=== PATIENT | female | born 1985 | race Caucasian/White ===

== ENCOUNTER 2018-06-25 14:43 | Inpatient (IN) ==
[2018-06-25] MEDS ORDERED: NS 1,000 ML IV ONE (18:56)
[2018-06-25] MEDS ORDERED: ZOFRAN IV ONE (18:57)
--- NOTE | 2018-06-25 19:46 | PROVIDER DOCUMENTATION ---
This chart was entered by Janett Peterson Scribe, acting as scribe for Agustín Garay MD. HPI-General Adult - General Chief Complaint: Nausea/Vomiting Stated Complaint: NAUSEA/VOMITING-7 WKS PREG Time Seen by Provider: 06/25/18 18:56 Source: patient Allergies/Adverse Reactions: Patient Allergies Allergy/AdvReac Type Severity Reaction Status Date / Time metaxalone [From Skelaxin] AdvReac NAUSEA/VOMI Verified 06/25/18 14:57 TING metoclopramide [From Reglan] AdvReac NAUSEA/VOMI Verified 06/25/18 14:57 TING prednisone AdvReac NAUSEA/VOMI Verified 06/25/18 14:57 TING Home Medications: Home Medication List Medication Instructions Recorded Confirmed Last Taken Type Levothyroxine [Synthroid] 75 microgm PO DAILY 12/28/17 01/28/18 01/28/18 05:00 History Lorazepam [Ativan] 0.5 mg PO PRN PRN 01/27/18 01/28/18 01/28/18 05:00 History - History of Present Illness -Gen Adult Nature of Presenting Problems: Pt is 32/F presenting to ED w/ n/v since yesterday. Pt is 7 1/2 weeks . Has hx of hyperemesis and has had PICC line in past and she sts that this feels the same as she did then and cannot keep anything down at all. Location of Pain/Injury: reports: abdomen Pain Radiation: reports: no radiation Quality of Pain: reports: other (tender/nauseated) Severity: reports: moderate Onset/Duration: reports: last night Timing: reports: still present Context/Activities at Onset: reports: none Modifying Factors: improves with: nothing Associated Symptoms: reports: nausea, vomiting, weakness. denies: anxiety, fever/chills Similar Symptoms Previously?: Yes Recently seen or treated by another doctor?: No Review of Systems - Adult - REVIEW OF SYSTEMS - ADULT Constitutional: reports: no symptoms reported. denies: chills, fever Eyes: reports: no symptoms reported Ears, Nose, Mouth & Throat: reports: no symptoms reported Cardiovascular: reports: no symptoms reported Respiratory: denies: cough, shortness of breath, wheezing Gastrointestinal: reports: abdominal pain, nausea, vomiting. denies: diarrhea Musculoskeletal: reports: no symptoms reported Integumentary: reports: no symptoms reported Neurological: reports: no symptoms reported Psychiatric: reports: no symptoms reported Endocrine: reports: no symptoms reported Hematologic/Lymphatic: reports: no symptoms reported Allergic/Immunologic: reports: no symptoms reported All Other Systems: Reviewed and Negative Past History - Adult - PAST MEDICAL HISTORY-ADULT Review of Records: reports: Old Records Reviewed, Nursing Assessment Review, Medications Reviewed, Social history reviewed & non-contributory. Major Childhood Illnesses: reports: denies history Cardiovascular: reports: denies history Respiratory: reports: denies history Gastrointestinal: reports: denies history Obstetrical/Gynecological: reports: denies history Genitourinary: reports: denies history Musculoskeletal: reports: denies history Neurological: reports: denies history Psychiatric: reports: denies history Endocrine/Immune: reports: denies history Other Conditions: reports: denies history - PRIOR SURGERIES/PROCEDURES Surgical/Procedure History: reports: cholecystectomy, - IMMUNIZATION STATUS Childhood Immunizations: See Nurse Assessment Flu Vaccine: See Nurse Assessment - FAMILY HISTORY Family History: reviewed, not pertinent - SOCIAL HISTORY Smoking: denies, non-smoker Substance Use: none/never Alcohol Use Frequency: never Living Situation: family Physical Exam-General - PHYSICAL EXAM-ADULT Initial Vital Signs Reviewed: Yes - CONSTITUTIONAL General Appearance: appears well, alert, no apparent distress - EYES Eyes: PERRL/EOMI, pink conjunctivae - HEAD, EARS, NOSE, MOUTH & THROAT HENMT: normocephalic/atraumatic, moist mucous membranes, normal ENT inspection, TMs normal, pharynx normal - NECK Neck: non-tender, full range of motion, supple, normal inspection - RESPIRATORY Respiratory: lungs clear - CARDIOVASCULAR Cardiovascular: normal peripheral pulses, regular rate, rhythm, no edema - GASTROINTESTINAL (ABDOMEN) Abdominal Exam: soft, tenderness - LYMPHATIC Lymphatic: no adenopathy - MUSCULOSKELETAL Back Exam: normal inspection, no CVA tenderness, no vertebral tenderness Extremity: normal range of motion, non-tender, normal gait, normal inspection - SKIN Integumentary: normal color, warm/dry - NEUROLOGIC Neurologic: grossly normal - PSYCHIATRIC Psych/Mental Status: normal mood/affect, normal thought content, normal thought process, oriented x 3 Progress - PLAN OF CARE/RESULTS Progress/Plan/Lab Results: Vital Signs - 8 hr 06/25/18 14:53 Temperature 97.8 F Pulse Rate 82 Respiratory Rate 18 Blood Pressure 106/65 O2 Sat by Pulse Oximetry 100 Orders Category Date Time Status BMP [BASIC METABOLIC PANEL] [CHEM] Stat Lab 06/25/18 18:56 Ordered 0.9% Sodium Chloride Inj [Ns] 1,000 ml Med 06/25/18 18:56 Active IV 999 mls/hr Ondansetron [Zofran] Med 06/25/18 18:57 Discontinued 4 mg IV NOW ONE Result Diagrams: 06/25/18 22:24 - CONSULTS/PCP/HOSPITALIST Notification #1 *Consult/PCP/Hospitalist*: Dr. Palmer, INDUSTRIAL REGISTERED NURSE lifestyle consultant Time Discussed: 00:10 Reason/Comments: give LR at 125cc/hr Consult Disposition: Admit Departure - Departure Date of Disposition Decision: 06/26/18 Time of Disposition Decision: 00:03 DIAGNOSIS: Hyperemesis gravidarum Disposition: ADMITTED INPATIENT 09 Certified Medical Emergency: Emergent Condition: Stable Referrals and Follow-Ups: Kym Aguilera [Primary Care Provider] - - Critical Care Note This patient required my direct & personal management of CC.: No Attestation - Physician/ HELADIO Attestation Patient care was provided by Advanced Practice Provider:: No The physician spent face to face time with patient:: Yes Advanced Practice Provider documentation review:: Supervising physician onsite and consulted in the evaluation and care of this patient. The physician did have a face to face encounter with the patient. This chart was documented by the indicated scribe, (Janett Peterson, Monica) and accurately reflects the services I performed and decisions made by me, Agustín Garay MD, as attested by the provider's signature.
[2018-06-25] MEDS ORDERED: ZOFRAN IM ONE (20:49)
[2018-06-25] MEDS ORDERED: NS 1,000 ML ONE (22:17)
[2018-06-25 23:03] LABS: AGAP 16; BUN 10 mg/dL (8-22); CALCIUM 9.1 mg/dL (8.8-10.2); CHLORIDE 100 mmol/L (98-107); COSMO 268; CREATININE 0.4 mg/dL (0.5-0.9); ESTIMATED GFR > 60; GLUCOSE 147 mg/dL (70-104); POTASSIUM 3.9 mmol/L (3.5-5.1); SODIUM 133 mmol/L (136-145); TCO2 18 mmol/L (25-35)
[2018-06-25] MEDS ORDERED: ZOFRAN ONE (23:10)
[2018-06-26] MEDS ORDERED: SODIUM CHLORIDE 0.9% INJ ONE ×2 (00:09→15:36)
[2018-06-26] MEDS ORDERED: LR 1,000 ML IV ONE (00:11)
[2018-06-26] MEDS: PHENERGAN IV PRN ×3 (00:11→13:03)
[2018-06-26] MEDS ORDERED: SODIUM CHLORIDE 0.9% INJ SCH (00:30)
[2018-06-26] MEDS: LR 1,000 ML IV SCH ×3 (01:57→17:59)
[2018-06-26] MEDS: AMBIEN PO PRN ×2 (02:07→22:26)
[2018-06-26] MEDS: PYRIDOXINE PO PRN ×2 (02:09→12:13)
[2018-06-26] MEDS: ZOFRAN IV PRN ×3 (04:12→17:53)
[2018-06-26 07:44] LABS: AGAP 10; BUN 7 mg/dL (8-22); CALCIUM 8.3 mg/dL (8.8-10.2); CHLORIDE 103 mmol/L (98-107); COSMO 269; CREATININE 0.4 mg/dL (0.5-0.9); ESTIMATED GFR > 60; GLUCOSE 124 mg/dL (70-104); POTASSIUM 3.6 mmol/L (3.5-5.1); SODIUM 135 mmol/L (136-145); TCO2 23 mmol/L (25-35)
[2018-06-26 07:47] LABS: BASO# 0.01 X1000 (0.0-0.2); BASO% 0.1 % (0.0-0.8); HEMATOCRIT 37.7 % (37.0-47.0); HEMOGLOBIN 13.3 g/dL (12.0-16.0); IMM GRAN# 0.06 X1000 (0.0-0.04); IMM GRAN% 0.3 % (0.0-0.5); LYMPH# 1.48 X1000 (1.2-3.4); LYMPH% 8.3 % (20.5-51.1); MCH 31.6 PG (27-31); MCHC 35.3 g/dL (33-37); MCV 89.5 FL (81-99); MONO# 1.03 X1000 (0.11-0.59); MONO% 5.8 % (1.7-9.3); MPV 9.6 FL (7.4-10.4); NEUT# 15.22 X1000 (1.4-6.5); NEUT% 85.5 % (42.2-75.2); PLT 364 X1000 (130-400); RBC 4.21 XMIL (4.2-5.4); RDW 12.8 % (11.5-14.5)
--- NOTE | 2018-06-26 09:15 | HISTORY AND PHYSICAL ---
HISTORY OF PRESENT ILLNESS: The patient is a 32-year-old G4, P 2-0-1-2, who presented to the emergency room last night with complaints of intractable nausea and vomiting. The patient reports that she has been nauseated and vomiting for the last week. She has a history of hyperemesis gravidarum with a previous and reports that she was in the hospital a lot during that time. The patient reports that she also has a history of hypothyroidism and she is currently taking medications for that. The patient reports that she thinks that she is almost 8 weeks . She has not received any care as yet because she just found out she was . OB HISTORY: Significant for 4 pregnancies, 1 miscarriage and 2 live viable children. PAST MEDICAL HISTORY: Significant for hypothyroidism. MEDICATIONS: The patient is taking levothyroxine 75 mcg. ALLERGIES: 1. Skelaxin. 2. Reglan. 3. Prednisone. REVIEW OF SYSTEMS: Nausea and vomiting. All others negative. FAMILY HISTORY: None pertinent. SOCIAL HISTORY: The patient does not smoke. Denies substance use. Lives with her fiancee and her children as well as his children. PHYSICAL EXAMINATION: VITAL SIGNS: Temperature 98.3 degrees, pulse is 85, respiratory rate 18, blood pressure is 102/657. GENERAL: The patient is alert, awake, oriented x3, in mild distress with vomiting. HEENT: The patient is normocephalic, atraumatic. CARDIOVASCULAR: S1, S2 normal. LUNGS: Clear. ABDOMEN: Positive bowel sounds and nontender to palpation. No organomegaly appreciated. EXTREMITIES: No edema. LABORATORY DATA: Hemoglobin is 13.3, hematocrit 37.7, platelets 364,000, white count 17.8. Chemistry: Sodium is 135, potassium is 3.6, chloride is 103, carbon dioxide is 23, BUN 7, creatinine 0.4, and glucose 124. ASSESSMENT AND PLAN: 1. Early , approximately 8 weeks. 2. Hyperemesis gravidarum. The patient admitted to the hospital for IV hydration and antiemetic medications. We will get a medicine consult. The patient reports she had the same problem last and had to wind up having a PICC line. We will get internal medicine physician to co-manage. cc: Jason Beltrán MD
[2018-06-26] MEDS ORDERED: PHENERGAN IV PRN (15:36)
[2018-06-26] MEDS ORDERED: PHENERGAN IV ONE (15:36)
[2018-06-26] MEDS ORDERED: SODIUM CHLORIDE 0.9% INJ PRN (15:36)
[2018-06-26] MEDS ORDERED: BENADRYL IV PRN (15:38)
--- NOTE | 2018-06-26 16:24 | Diag Imaging Result Doc PS360 ---
US ABDOMEN-COMPLETE - 06/26/2018 INDICATION: abdominal pain TECHNIQUE: Aguilera scale, color Doppler, and duplex evaluation of the abdomen was performed. COMPARISON: None FINDINGS: The liver appears normal in size and echotexture. No focal masses are appreciated. The IVC and aorta appear normal. The pancreas is unremarkable. The gallbladder is surgically absent. The common bile duct measures 5 mm. The portal vein is patent with hepatopetal flow. Spleen is unremarkable. The kidneys appear normal bilaterally. There is no hydronephrosis. IMPRESSION: Status post cholecystectomy. Otherwise normal abdominal ultrasound. Electronically signed by Linsey Bahena 06/26/2018 4:22 PM
[2018-06-26] MEDS ORDERED: COMPAZINE IV PRN ×2 (18:00→18:48)
[2018-06-26] MEDS: PROTONIX IV SCH (18:20)
[2018-06-26 18:58] LABS: AGAP 9; ALKALINE PHOSPHATASE 38 U/L (32-104); BUN 6 mg/dL (8-22); CALCIUM 8.5 mg/dL (8.8-10.2); CHLORIDE 102 mmol/L (98-107); COSMO 270; CREATININE 0.4 mg/dL (0.5-0.9); ESTIMATED GFR > 60; GLUCOSE 105 mg/dL (70-104); GOT 17 U/L (10-30); GPT 24 U/L (10-36); POTASSIUM 3.5 mmol/L (3.5-5.1); SODIUM 136 mmol/L (136-145); TCO2 25 mmol/L (25-35); TOTAL PROTEIN 6.6 g/dL (6.3-8.3)
--- NOTE | 2018-06-26 19:23 | CONSULTATION ---
DATE OF CONSULTATION: 06/26/2018 SUBJECTIVE: The patient is 8 weeks . She was admitted by MANAGER INTRANET, 32 years old with intractable nausea, vomiting. She has a history of hyperemesis gravidarum. We were consulted for medical management. Also hypothyroid. Her 1st she had to have a PICC line and IV antibiotics. That was a child of 8 years old now. PAST MEDICAL HISTORY: Hypothyroidism. PAST SURGICAL HISTORY: She has had a cholecystectomy, wisdom teeth removed. ALLERGIES: To Skelaxin, Reglan, and prednisone. The Reglan causes kind of antsiness. It is not per se I do not think. REVIEW OF SYSTEMS: Negative. FAMILY HISTORY: No diabetes. There is a family history of early colon cancer. SOCIAL HISTORY: She does not smoke. Lives with her fiance. PHYSICAL EXAMINATION: Vital signs: Blood pressure is 111/62, heart rate of 110, respiratory rate of 17, and temperature 98.4 degrees. General: She is a well-developed female in no acute distress. Head Exam: Normocephalic, atraumatic. Eye exam: Pupils are equal, round, reactive to light. Extraocular movements were intact. Ears, nose, and throat exam: She had moist mucous membranes. Neck Exam: Supple. Cardiovascular Exam: Regular rate and rhythm. Pulmonary: Bilateral breath sounds clear to auscultation. Gastrointestinal: Soft, nontender, nondistended. Bowel sounds are positive. LABORATORY DATA: White count 17, creatinine 0.4. I am still waiting on a urine sample. Her urine test was negative, but last night was positive. PROBLEM LIST: This is an 8-week patient I guess based maybe on dates. I do not have any data here. The family is very insistent on getting an ultrasound, which has been ordered and that the only problem here is hyperemesis gravidarum, and there is no other possible diagnoses and explained that may be a differential, but we would certainly focus on treating the hyperemesis issues. Intractable nausea and vomiting: She is on IV fluids. She is very insistent on Compazine because she felt that was the only thing that worked during her last . At this point I think versus promethazine, which has been ordered, and I escalated the dose, I think those are fairly interchangeable, but I defer to OUTDOOR EMERGENCY CARE TECHNICIAN as far as that is concerned. I have added Benadryl. She is already on Zofran. We may have to consider reinstituting Reglan just because it may be a benefit and follow. I have gone ahead and pursued an ultrasound of her abdomen, which was negative. I would like a urine sample because I think we need to make sure she does not have a urinary tract infection or just basic other things, but there is definitely going to be some interference issue between patient and family about goals of care as far as what is expected and what should be instituted even though it is not clear that there is medical background from their perspective besides personal medical background related to the diagnoses that have been but we will follow with you and continue to monitor closely. I appreciate consult. cc: MD Jason Kaye MD
[2018-06-26] MEDS: COMPAZINE IV PRN (19:35)
[2018-06-26 23:09] LABS: BILIRUBIN URINE NEGATIVE (NEGATIVE); BLOOD URINE NEGATIVE (NEGATIVE); CLARITY CLEAR (CLEAR); COLOR YELLOW; GLUCOSE URINE NEGATIVE (NEGATIVE); KETONE URINE NEGATIVE (NEGATIVE); LEUKOCYTES URINE NEGATIVE (NEGATIVE); NITRITE URINE NEGATIVE (NEGATIVE); PROTEIN URINE NEGATIVE (NEGATIVE); SP GRAVITY URINE 1.005; UROBILINOGEN URINE NORMAL
[2018-06-26 23:11] LABS: URINE BACTERIA 1+ /HFP; URINE EPITHELIAL CELLS <10 /HPF (<10); URINE RBC <10 /HPF (<10); URINE SOURCE CLEAN CATCH; URINE WBC <10 /HPF (<10)
[2018-06-27] MEDS: LR 1,000 ML IV SCH ×3 (02:00→22:34)
[2018-06-27] MEDS: COMPAZINE IV PRN ×3 (02:12→19:32)
[2018-06-27] MEDS: PROTONIX IV SCH ×2 (05:55→18:51)
[2018-06-27] MEDS ORDERED: SODIUM CHLORIDE 0.9% INJ SCH (06:30)
[2018-06-27 07:50] LABS: BASO# 0.02 X1000 (0.0-0.2); BASO% 0.2 % (0.0-0.8); EOS# 0.04 X1000 (0.0-0.7); EOS% 0.3 % (0.0-10.0); HEMATOCRIT 35.9 % (37.0-47.0); HEMOGLOBIN 12.1 g/dL (12.0-16.0); IMM GRAN# 0.04 X1000 (0.0-0.04); IMM GRAN% 0.3 % (0.0-0.5); LYMPH# 3.76 X1000 (1.2-3.4); LYMPH% 31.3 % (20.5-51.1); MCHC 33.7 g/dL (33-37); MCV 92.1 FL (81-99); MONO# 0.88 X1000 (0.11-0.59); MONO% 7.3 % (1.7-9.3); MPV 9.8 FL (7.4-10.4); NEUT# 7.27 X1000 (1.4-6.5); NEUT% 60.6 % (42.2-75.2); PLT 338 X1000 (130-400); RDW 13.2 % (11.5-14.5); WBC 12.01 X1000 (4.8-10.8)
--- NOTE | 2018-06-27 09:17 | Diag Imaging Result Doc PS360 ---
EXAM: US OBS COMPLETE < 14 WKS 06/27/2018 HISTORY: EARLY TECHNIQUE: Transabdominal and endovaginal scan COMMENT: There is an intrauterine gestational sac with yolk sac and pole and the fundal endometrium. No abnormal fluid collections are present. The left ovary is unremarkable, the right is not well demonstrated. There is a heart rate of 133 bpm and a crown-rump length consistent with a gestational age of six weeks six days which is in agreement with the clinical assessment based on LMP. The DEEPTHI is 02/14/2019. IMPRESSION: Viable intrauterine gestation at six weeks six days by dates and ultrasound. Electronically signed by Ayaz Ponce 06/27/2018 9:14 AM
[2018-06-27] MEDS ORDERED: SYNTHROID PO SCH (17:00)
[2018-06-27] MEDS ORDERED: NS 500 ML IV ONE (17:19)
--- NOTE | 2018-06-27 17:57 | PROGRESS NOTE ---
DATE: 06/27/2018 SUBJECTIVE: Patient has no focal complaints. She is better. She is eating, not throwing up anymore. She just seems much improved per her but in any case her objective data blood pressure is a little bit on the low side, 82/52, give her a bolus here to try to get her blood pressure up. OBJECTIVE: As described.Cardiovascular: Regular rate and rhythm. Pulmonary: Bilateral breath sounds clear to auscultation. GI: Soft, nontender, nondistended. Bowel sounds are positive. LAB: Her white count is down to 12, hemoglobin and hematocrit is 12 and 35. Rest of her labs look okay. T bilirubin is up a little bit but TSH is normal. Her serum is 31,562 which is consistent with about 8 weeks according to these well the lower limit but her ultrasound looks like it is closer to 6 weeks. In any case. PROBLEMS: Hyperemesis gravidarum. She is doing better. She is safe for discharge from my standpoint at the request of [employer] PAVING MACHINE OPERATOR if they feel comfortable giving her p.r.n. Compazine. She seems better to me. The only issue a little bit of contention with is just her blood pressure is low which she is asymptomatic but I think it may be more prudent to watch her 1 more day just to make sure her blood pressure stabilizes. DISPOSITION: Pending her clinical status. We will follow along with you. cc: MD Jason Kaye MD
--- NOTE | 2018-06-27 18:04 | OB/GYN PROGRESS NOTE ---
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 Patient Problems: Current Active Problems Problem Status Onset Hyperemesis gravidarum Acute POT[employer] SE[employer] CUTTER Progress Note: Vital Signs - 24 hr 06/26/18 20:00 06/27/18 05:58 06/27/18 07:17 Temperature 98.7 F 98.4 F 98.5 F Pulse Rate 91 H 84 76 Respiratory Rate 18 18 18 Blood Pressure 94/43 83/46 83/42 O2 Sat by Pulse Oximetry 98 97 98 06/27/18 11:51 06/27/18 17:06 06/27/18 17:11 Temperature 98.3 F 98.1 F Pulse Rate 88 82 Respiratory Rate 16 18 Blood Pressure 87/54 79/50 82/52 O2 Sat by Pulse Oximetry 100 100 Bedside Urine ED: Urine Bedside Start: 06/25/18 21:06 Freq: Status: Complete Protocol: Activity Type Activity Date Activity User E-Sign Co-Sign Detail Recorded Client Recorded Date Recorded By Document 06/25/18 21:09 [id number] 06/25/18 21:09 [id number] Edit Status 06/26/18 01:29 [id number] Active=>Complete [id number] 06/26/18 01:29 [id number] 06/25/18 21:09 Point of Care [Bedside Point of Care] -Lot # [id number] - Results Positive -Control Line Visible? Yes Laboratory Results - last 24 hr 06/26/18 06/26/18 06/26/18 06:30 06:30 07:23 WBC RBC Hgb Hct MCV MCH MCHC RDW Std Deviation Plt Count MPV Immature Gran % (Auto) Neut % (Auto) Lymph % (Auto) [place] % (Auto) Eos % (Auto) Baso % (Auto) Immature Gran # (Auto) Neut # (Auto) Lymph # (Auto) [place] # (Auto) Eos # (Auto) Baso # (Auto) Sodium 136 135 L Potassium 3.5 3.6 Chloride 102 103 Carbon Dioxide 25 Anion Gap 9 BUN 6 L 7 L Creatinine 0.4 L Estimated GFR/1.73 m2 > 60 BUN/Creatinine Ratio 15 Glucose 105 H 124 H Calculated Osmolality 270 Calcium 8.5 L 8.3 L Total Bilirubin 1.90 H AST 17 ALT 24 Alkaline Phosphatase 38 Total Protein 6.6 Albumin 4.0 Globulin 3.0 Albumin/Globulin Ratio 2.0 TSH Ser , Semi-Qnt 78601.0 Urine Source Urine Color Urine Clarity Urine Turbidity Urine pH Ur Specific [place] Urine Protein Ur Glucose (Stick) Urine Ketones Ur Ketones (Stick) Urine Blood Urine Nitrite Urine Bilirubin Urine Urobilinogen Urobilinogen Dipstick Urine Leukocytes Urine WBC (Auto) Urine RBC (Auto) U Epithel Cells (Auto) Urine Bacteria (Auto) Urine Microscopic RBC Urine WBC Urine Microscopic WBC Ur Epithelial Cells Urine Bacteria Urine Glucose 06/26/18 06/27/18 06/27/18 22:16 05:47 05:47 WBC 12.01 H RBC 3.90 L Hgb 12.1 Hct 35.9 L MCV 92.1 MCH 31.0 MCHC 33.7 RDW Std Deviation 13.2 Plt Count 338 MPV 9.8 Immature Gran % (Auto) 0.3 Neut % (Auto) 60.6 Lymph % (Auto) 31.3 [place] % (Auto) 7.3 Eos % (Auto) 0.3 Baso % (Auto) 0.2 Immature Gran # (Auto) 0.04 Neut # (Auto) 7.27 H Lymph # (Auto) 3.76 H [place] # (Auto) 0.88 H Eos # (Auto) 0.04 Baso # (Auto) 0.02 Sodium Potassium Chloride Carbon Dioxide Anion Gap BUN Creatinine Estimated GFR/1.73 m2 BUN/Creatinine Ratio Glucose Calculated Osmolality Calcium Total Bilirubin AST ALT Alkaline Phosphatase Total Protein Albumin Globulin Albumin/Globulin Ratio TSH 3.15 Ser , Semi-Qnt Urine Source CLEAN CATCH Urine Color YELLOW Urine Clarity CLEAR Urine Turbidity Cancelled Urine pH 7.0 Ur Specific [place] 1.005 Urine Protein NEGATIVE Ur Glucose (Stick) Cancelled Urine Ketones NEGATIVE Ur Ketones (Stick) Cancelled Urine Blood NEGATIVE Urine Nitrite NEGATIVE Urine Bilirubin NEGATIVE Urine Urobilinogen NORMAL Urobilinogen Dipstick Cancelled Urine Leukocytes Cancelled Urine WBC (Auto) Cancelled Urine RBC (Auto) Cancelled U Epithel Cells (Auto) Cancelled Urine Bacteria (Auto) Cancelled Urine Microscopic RBC <10 Urine WBC NEGATIVE Urine Microscopic WBC <10 Ur Epithelial Cells <10 Urine Bacteria 1+ Urine Glucose NEGATIVE S. Patient resting in bed with her mother in the room. She is eating dinner. She has not vomited today. She has had IV fluids and compazine for meds today. She has not taken her levothyroxine in 4 days because of the vomiting. Discussed restarting it now. She states her reglan allergy was not a real allergy just that it made her "antsy" She is willing to try it if necessary. She likewise had a reaction to prednisone as a child. The reaction was vomiting and she believes she was vomiting anyway from a gallbladder issue. She is also willing to try this if necessary later in . She feels much better today. We discussed taking her thyroid meds, eating dinner and D/C tomorrow if she is still improved. Patient concurs. O. TSH 3, Vitals WNL. HEENT: head atraumatic, normocephalic Thyroid WNL Chest: CTAB Heart RRR Abdomen soft Ext without edema. A/P 32yo at 6wk 6days by US today with N/V of . Continue compazin e, restart levothyroxine. Likely discharge tomorrow.
[2018-06-27 18:13] LABS: AGAP 8; ALBUMIN 3.5 g/dL (3.5-5.0); ALKALINE PHOSPHATASE 30 U/L (32-104); BUN 7 mg/dL (8-22); CALCIUM 7.9 mg/dL (8.8-10.2); CHLORIDE 107 mmol/L (98-107); COSMO 279; CREATININE 0.4 mg/dL (0.5-0.9); ESTIMATED GFR > 60; GLUCOSE 94 mg/dL (70-104); GOT 14 U/L (10-30); GPT 20 U/L (10-36); SODIUM 141 mmol/L (136-145); TCO2 27 mmol/L (25-35); TOTAL PROTEIN 5.4 g/dL (6.3-8.3)
[2018-06-27] MEDS: AMBIEN PO PRN (22:33)
[2018-06-28] MEDS ORDERED: NS 500 ML IV ONE (00:48)
[2018-06-28] MEDS: LR 1,000 ML IV SCH ×2 (02:48→08:53)
[2018-06-28] MEDS: PROTONIX IV SCH (05:43)
[2018-06-28] MEDS ORDERED: SYNTHROID PO SCH (07:00)
[2018-06-28 07:57] VITALS: BP 85/52
[2018-06-28] MEDS: COMPAZINE IV PRN (08:26)
[2018-06-28 08:28] LABS: BASO# 0.03 X1000 (0.0-0.2); BASO% 0.3 % (0.0-0.8); EOS# 0.04 X1000 (0.0-0.7); EOS% 0.4 % (0.0-10.0); HEMATOCRIT 32.2 % (37.0-47.0); HEMOGLOBIN 10.8 g/dL (12.0-16.0); IMM GRAN# 0.02 X1000 (0.0-0.04); IMM GRAN% 0.2 % (0.0-0.5); LYMPH# 2.61 X1000 (1.2-3.4); LYMPH% 25.5 % (20.5-51.1); MCH 30.8 PG (27-31); MCHC 33.5 g/dL (33-37); MCV 91.7 FL (81-99); MONO# 0.76 X1000 (0.11-0.59); MONO% 7.4 % (1.7-9.3); MPV 9.5 FL (7.4-10.4); NEUT# 6.77 X1000 (1.4-6.5); NEUT% 66.2 % (42.2-75.2); PLT 285 X1000 (130-400); RBC 3.51 XMIL (4.2-5.4); WBC 10.23 X1000 (4.8-10.8)
--- NOTE | 2018-06-28 10:00 | OB/GYN PROGRESS NOTE ---
Progress Note HEEL FORMER - . Patient Problems: Current Active Problems Problem Status Onset Hyperemesis gravidarum Acute HEEL FORMER Progress Note: Vital Signs - 24 hr 06/27/18 11:51 06/27/18 17:06 06/27/18 17:11 Temperature 98.3 F 98.1 F Pulse Rate 88 82 Respiratory Rate 16 18 Blood Pressure 87/54 79/50 82/52 O2 Sat by Pulse Oximetry 100 100 06/27/18 20:00 06/28/18 00:00 06/28/18 04:00 Temperature 98.4 F 98.8 F 97.9 F Pulse Rate 85 99 H 93 H Respiratory Rate 18 18 18 Blood Pressure 87/43 85/36 97/42 O2 Sat by Pulse Oximetry 100 100 99 06/28/18 07:33 06/28/18 07:57 Temperature 98.4 F Pulse Rate 77 Respiratory Rate 18 Blood Pressure 73/50 85/52 O2 Sat by Pulse Oximetry 100 Bedside Urine ED: Urine Bedside Start: 06/25/18 21:06 Freq: Status: Complete Protocol: Activity Type Activity Date Activity User E-Sign Co-Sign Detail Recorded Client Recorded Date Recorded By Document 06/25/18 21:09 [id number] 06/25/18 21:09 [id number] Edit Status 06/26/18 01:29 [id number] Active=>Complete [id number] 06/26/18 01:29 [id number] 06/25/18 21:09 Point of Care [Bedside Point of Care] -Lot # [id number] - Results Positive -Control Line Visible? Yes Laboratory Results - last 24 hr 06/27/18 06/27/18 06/28/18 17:40 17:40 07:05 WBC 10.23 RBC 3.51 L Hgb 10.8 L Hct 32.2 L MCV 91.7 MCH 30.8 MCHC 33.5 RDW Std Deviation 13.0 Plt Count 285 MPV 9.5 Immature Gran % (Auto) 0.2 Neut % (Auto) 66.2 Lymph % (Auto) 25.5 [place] % (Auto) 7.4 Eos % (Auto) 0.4 Baso % (Auto) 0.3 Immature Gran # (Auto) 0.02 Neut # (Auto) 6.77 H Lymph # (Auto) 2.61 [place] # (Auto) 0.76 H Eos # (Auto) 0.04 Baso # (Auto) 0.03 Sodium 141 Potassium 4.0 Chloride 107 Carbon Dioxide 27 Anion Gap 8 BUN 7 L Creatinine 0.4 L Estimated GFR/1.73 m2 > 60 BUN/Creatinine Ratio 18 Glucose 94 Calculated Osmolality 279 Calcium 7.9 L Total Bilirubin 1.50 H AST 14 ALT 20 Alkaline Phosphatase 30 L Total Protein 5.4 L Albumin 3.5 Globulin 2.0 Albumin/Globulin Ratio 2.0 Prealbumin 18.5 L S. Patient feeling fine. She has not vomited since Friday night. Discussed limited data on the use of compazine in , using it as little as possible for a short period. We discussed that there are case reports of anomalies but it is unknown if there is a causal effect from compazine. She knows to get an appointment with [facility] and then to see Dr. Block. Haroldo Cheng [facility]. A/P 32yo at 7wks gestation with N/V of . Patient doing well. D/C today.
--- NOTE | 2018-06-28 10:58 | DISCHARGE SUMMARY ---
ADMISSION DATE: 06/26/2018 DISCHARGE DATE: 06/28/18 DISCHARGE DIAGNOSES: 1. Hyperemesis gravidarum/nausea, vomiting of . 2. Intrauterine at 7 weeks 0 days by ultrasound on 6 weeks 6 days. PROCEDURES: IV fluids. SUMMARY OF HOSPITAL COURSE: The patient presented on 06/26/2018 with intractable nausea and vomiting. She was given IV fluids and antiemetics. She did well, and has resumed eating and tolerating regular food. She feels the Compazine was most useful to her, and has been doing fine on it for 24 hours with just the Compazine. Instructions were given for her to follow up with [facility], and get an appointment with Dr. Block after doing so. The patient is aware of the use of Compazine in and its potential adverse events. DISCHARGE INSTRUCTIONS: 1. Follow up with [facility]. 2. Make an appointment with Dr. Block. 3. Continue the use of antiemetics as needed. DISCHARGE MEDICINES: See medication reconciliation discharge form. DISPOSITION: To home. LABORATORY DATA: Most recent labs show mild anemia at hemoglobin of 10.8, with relatively normal CBC. Electrolytes were normal on 06/27/2018. Protein was low on 06/27/2018 at 5.4, and prealbumin is 18.5. The patient's TSH was normal at 3.15. cc: DO Jason Gonzales MD MTDD
== END 2018-06-28 11:20 | disposition home or self-care (01) | DRG 833 ==
LOC: P.ED 14:43 → P.MEDSURG 14:43 → OBSVTOIN 06-26 00:51
PROVIDERS: ADMIT Obstetrics & Gynecology; ATTEND Obstetrics & Gynecology
CPT/HCPCS: 76700; 76801; 80048; 80053; 81001; 81025; 84134; 84443; 84702; 85025; 96372; 96374; 99284; A9270; C9113; J0780; J2405; J2550; J7030; J7040; J7120; S0164

== ENCOUNTER 2018-09-09 21:44 | Inpatient (IN) ==
[2018-09-09] MEDS ORDERED: REGLAN IV ONE (22:39)
[2018-09-09] MEDS ORDERED: NS 1,000 ML IV ONE ×2 (22:39→22:41)
[2018-09-10 00:30] LABS: AGAP 11; BASO# 0.02 X1000 (0.0-0.2); BASO% 0.1 % (0.0-0.8); BUN 8 mg/dL (8-22); CALCIUM 8.1 mg/dL (8.8-10.2); CHLORIDE 101 mmol/L (98-107); COSMO 266; CREATININE 0.6 mg/dL (0.5-0.9); ESTIMATED GFR > 60; GLUCOSE 117 mg/dL (70-104); HEMATOCRIT 35.2 % (37.0-47.0); HEMOGLOBIN 12.4 g/dL (12.0-16.0); IMM GRAN# 0.13 X1000 (0.0-0.04); IMM GRAN% 0.5 % (0.0-0.5); LYMPH# 1.91 X1000 (1.2-3.4); MCH 31.6 PG (27-31); MCHC 35.2 g/dL (33-37); MCV 89.6 FL (81-99); MONO# 0.95 X1000 (0.11-0.59); MPV 10.2 FL (7.4-10.4); NEUT# 20.91 X1000 (1.4-6.5); NEUT% 87.4 % (42.2-75.2); PLT 341 X1000 (130-400); POTASSIUM 3.4 mmol/L (3.5-5.1); RBC 3.93 XMIL (4.2-5.4); RDW 13.1 % (11.5-14.5); SODIUM 133 mmol/L (136-145); TCO2 21 mmol/L (25-35); WBC 23.92 X1000 (4.8-10.8)
[2018-09-10] MEDS ORDERED: COMPAZINE IV ONE (00:55)
--- NOTE | 2018-09-10 01:21 | PROVIDER DOCUMENTATION ---
This chart was entered by Marie Salomon Scribe, acting as scribe for Esvin Parker MD. HPI-Female /OB/Breast - General Chief Complaint: Return/Recheck Stated Complaint: RECHECK, VOMITING, 18 WEEKS Time Seen by Provider: 09/09/18 22:30 Source: reports: patient Allergies/Adverse Reactions: Patient Allergies Allergy/AdvReac Type Severity Reaction Status Date / Time metaxalone [From Skelaxin] AdvReac NAUSEA/VOMI Verified 06/25/18 14:57 TING metoclopramide [From Reglan] AdvReac NAUSEA/VOMI Verified 06/25/18 14:57 TING prednisone AdvReac NAUSEA/VOMI Verified 06/25/18 14:57 TING Home Medications: Home Medication List Medication Instructions Recorded Confirmed Last Taken Type Levothyroxine [Synthroid] 75 microgm PO DAILY 12/28/17 06/26/18 01/28/18 05:00 History Pnv No.122/Iron/Folic Acid 1 ea PO DAILY 06/26/18 06/26/18 Unknown History [ Multi Tablet] Pantoprazole [Protonix] 40 mg PO DAILY #30 tab 06/28/18 Unknown Rx Prochlorperazine [Compazine] 10 mg PO Q6H PRN PRN #60 vial 06/28/18 Unknown Rx - History of Present Illness-Female /OB Nature of Presenting Problem: pt is a 32 yr old female presenting for continued nausea, vomiting. pt was seen here this morning for same. pt hx of hyperemesis , 18 weeks , hx of same with prior pregnancies. pt reports only relief is with iv medications and has has to be admitted in past and had PICC line placed with prior . pt followed by Dr Block. no relief since discharge. Does patient report she is ?: Yes Severity in ED: reports: moderate Onset/Duration: reports: 2 days ago Timing: reports: still present Context/Activities at Onset: reports: light activity Vaginal Symptoms: reports: no symptoms Vaginal Bleeding Amount: None Urinary Symptoms: reports: no symptoms Related Symptoms: reports: no symptoms Associated Symptoms: reports: dizziness, fatigue, nausea, vomiting. denies: diarrhea, fever/chills Similar Symptoms Previously?: Yes Recently seen or treated by another doctor?: Yes - LMP/ History Menstrual Status: currently : 4 Para: 2 Care: OB doctor (dr block) CURRENT Problems: other (hyperemesis ) PREVIOUS Problems: reports: other (hyperemesis ) Review of Systems - Adult - REVIEW OF SYSTEMS - ADULT Constitutional: denies: chills, fever, fatique Eyes: denies: blurred vision, double vision Ears, Nose, Mouth & Throat: reports: no symptoms reported Cardiovascular: denies: chest pain, palpitations, syncope Respiratory: denies: shortness of breath Gastrointestinal: reports: nausea, vomiting. denies: abdominal pain Genitourinary: denies: dysuria, frequency, flank pain Musculoskeletal: denies: back pain, neck pain Integumentary: reports: no symptoms reported Neurological: denies: dizziness/vertigo, headache/migraines Psychiatric: reports: no symptoms reported Endocrine: reports: no symptoms reported Hematologic/Lymphatic: reports: no symptoms reported Allergic/Immunologic: reports: no symptoms reported All Other Systems: Reviewed and Negative Past History - Adult - PAST MEDICAL HISTORY-ADULT Review of Records: reports: Old Records Reviewed, Nursing Assessment Review, Medications Reviewed, Social history reviewed & non-contributory. Major Childhood Illnesses: reports: denies history Cardiovascular: reports: denies history Respiratory: reports: denies history Gastrointestinal: reports: denies history Obstetrical/Gynecological: reports: denies history Genitourinary: reports: denies history Musculoskeletal: reports: denies history Neurological: reports: denies history Psychiatric: reports: denies history Endocrine/Immune: reports: denies history Other Conditions: reports: denies history - PRIOR SURGERIES/PROCEDURES Surgical/Procedure History: reports: cholecystectomy, - IMMUNIZATION STATUS Childhood Immunizations: See Nurse Assessment Flu Vaccine: See Nurse Assessment - FAMILY HISTORY Family History: reviewed, not pertinent - SOCIAL HISTORY Living Situation: family Physical Exam-General - PHYSICAL EXAM-ADULT Initial Vital Signs Reviewed: Yes - CONSTITUTIONAL General Appearance: alert, no apparent distress - EYES Eyes: PERRL/EOMI - HEAD, EARS, NOSE, MOUTH & THROAT HENMT: normocephalic/atraumatic, moist mucous membranes - NECK Neck: non-tender, full range of motion, supple, normal inspection - RESPIRATORY Respiratory: chest non-tender, lungs clear, normal breath sounds, no respiratory distress, no accessory muscle use - CARDIOVASCULAR Cardiovascular: normal peripheral pulses, regular rate, rhythm, no edema - GASTROINTESTINAL (ABDOMEN) Abdominal Exam: normal bowel sounds, soft, tenderness (mild periumbilical tenderness) - LYMPHATIC Lymphatic: no adenopathy - MUSCULOSKELETAL Back Exam: normal inspection Extremity: normal range of motion, non-tender, normal gait, normal inspection - SKIN Integumentary: normal color, normal turgor, warm/dry - PSYCHIATRIC Psych/Mental Status: normal mood/affect Progress - PLAN OF CARE/RESULTS Progress/Plan/Lab Results: Vital Signs - 8 hr 09/09/18 21:50 Temperature 99.3 F Pulse Rate 84 Respiratory Rate 20 Blood Pressure 121/69 O2 Sat by Pulse Oximetry 99 Laboratory Results - last 24 hr 09/09/18 09/09/18 23:00 23:00 WBC 23.92 H RBC 3.93 L Hgb 12.4 D Hct 35.2 L MCV 89.6 MCH 31.6 H MCHC 35.2 RDW Std Deviation 13.1 Plt Count 341 MPV 10.2 Immature Gran % (Auto) 0.5 Neut % (Auto) 87.4 H Lymph % (Auto) 8.0 L [place] % (Auto) 4.0 Eos % (Auto) 0.0 Baso % (Auto) 0.1 Immature Gran # (Auto) 0.13 H Neut # (Auto) 20.91 H Lymph # (Auto) 1.91 [place] # (Auto) 0.95 H Eos # (Auto) 0.00 Baso # (Auto) 0.02 Sodium 133 L Potassium 3.4 L Chloride 101 Carbon Dioxide 21 L Anion Gap 11 BUN 8 Creatinine 0.6 Estimated GFR/1.73 m2 > 60 BUN/Creatinine Ratio 13 Glucose 117 H Calculated Osmolality 266 Calcium 8.1 L Orders Category Date Time Status BASIC METABOLIC PANEL [CHEM] Stat Lab 09/10/18 00:04 Completed CBC WITH DIFF [HEME] Stat Lab 09/10/18 00:04 Completed 0.9% Sodium Chloride Inj [Ns] 1,000 ml Med 09/09/18 22:41 Active IV 200 mls/hr 0.9% Sodium Chloride Inj [Ns] 1,000 ml Med 09/09/18 22:39 Discontinued IV 999 mls/hr Metoclopramide [Reglan] Med 09/09/18 22:39 Discontinued 10 mg IV NOW ONE Prochlorperazine [Compazine] Med 09/10/18 00:55 Discontinued 10 mg IV NOW ONE Result Diagrams: 09/09/18 23:00 09/09/18 23:00 - CONSULTS/PCP/HOSPITALIST Notification #1 *Consult/PCP/Hospitalist*: Fair Time Discussed: :19 Consult Disposition: Admit Departure - Departure Date of Disposition Decision: 09/10/18 Time of Disposition Decision: 01:20 DIAGNOSIS: Hyperemesis gravidarum Disposition: ADMITTED INPATIENT 09 Certified Medical Emergency: Emergent Condition: Good Referrals and Follow-Ups: Hao Block III, MD [Primary Care Provider] - - Critical Care Note This patient required my direct & personal management of CC.: No Attestation - Physician/ HELADIO Attestation Patient care was provided by Advanced Practice Provider:: No The physician spent face to face time with patient:: Yes Advanced Practice Provider documentation review:: Supervising physician onsite and consulted in the evaluation and care of this patient. The physician did have a face to face encounter with the patient. This chart was documented by the indicated scribe, (Marie Salomon Scribe) and accurately reflects the services I performed and decisions made by me, Esvin Parker MD, as attested by the provider's signature.
[2018-09-10] MEDS ORDERED: NS 1,000 ML IV ONE (02:44)
[2018-09-10] MEDS: COMPAZINE IV PRN ×4 (02:57→22:05)
[2018-09-10] MEDS ORDERED: ZOFRAN IV ONE (04:37)
[2018-09-10] MEDS ORDERED: SYNTHROID PO ONE (08:58)
--- NOTE | 2018-09-10 09:06 | H&P REVIEW ---
H&P Update Document any changes: 32 YOWF with IUP at 18 weeks presented to ED with c/o nausea and vomiting. Can't keep anything down. Denies urinary symptoms or diarrhea. Pt states she had hyperemesis with her previous pregnancies. She had a PIC line last pg. Pt sees Dr Block. PMH: hypothyroid. PSH: c.section x1, x1, GB, teeth. FmHx: Dad with DM, Mom is alive and well. Allergies: as documented in record. Meds: synthyroid 75mcq/day. PobHx: , C.section, spon ab. Shx: non-smoker. ROS: Nausea/vomiting. no other complaints. 5 reviewed. PE: VSS. RRR without M. PUL: clear. Back: No cvat. Lower ext: no edema, DTR 1+, no calf tenderness. Abd: soft and nontender, fundus is soft and nontender. A/P: IUP 18 weeks with hyperemesis. Continue with IV hydration today. Re-check WBC later today. U/A needed. Will have L&D doc FHT q shift.
[2018-09-10 10:25] LABS: CLARITY CLEAR (CLEAR); COLOR YELLOW
[2018-09-10 10:26] LABS: BILIRUBIN URINE NEGATIVE (NEGATIVE); BLOOD URINE NEGATIVE (NEGATIVE); GLUCOSE URINE NEGATIVE (NEGATIVE); KETONE URINE 2+(Moderate) mg/dL (NEGATIVE); LEUKOCYTES URINE NEGATIVE (NEGATIVE); NITRITE URINE NEGATIVE (NEGATIVE); PH URINE 6.5; PROTEIN URINE NEGATIVE (NEGATIVE); UROBILINOGEN URINE 1 mg/dL
[2018-09-10 10:30] LABS: URINE BACTERIA NEGATIVE /HFP; URINE CAST NONE SEEN /LPF; URINE CRYSTAL NONE SEEN /HPF; URINE EPITHELIAL CELLS <10 /HPF (<10); URINE RBC <10 /HPF (<10); URINE SOURCE CLEAN CATCH; URINE WBC <10 /HPF (<10); URINE YEAST NONE SEEN /HPF
[2018-09-10] MEDS ORDERED: AMBIEN PO ONE (19:56)
[2018-09-11] MEDS: COMPAZINE IV PRN ×2 (04:04→10:37)
[2018-09-11] MEDS ORDERED: SYNTHROID PO SCH (07:00)
[2018-09-11 07:29] VITALS: BP 95/48
[2018-09-11 09:00] LABS: BASO# 0.01 X1000 (0.0-0.2); BASO% 0.1 % (0.0-0.8); EOS# 0.05 X1000 (0.0-0.7); EOS% 0.5 % (0.0-10.0); HEMATOCRIT 32.4 % (37.0-47.0); HEMOGLOBIN 11.2 g/dL (12.0-16.0); IMM GRAN# 0.03 X1000 (0.0-0.04); IMM GRAN% 0.3 % (0.0-0.5); LYMPH# 2.33 X1000 (1.2-3.4); LYMPH% 24.6 % (20.5-51.1); MCH 31.3 PG (27-31); MCHC 34.6 g/dL (33-37); MCV 90.5 FL (81-99); MONO# 0.79 X1000 (0.11-0.59); MONO% 8.3 % (1.7-9.3); MPV 9.2 FL (7.4-10.4); NEUT# 6.28 X1000 (1.4-6.5); NEUT% 66.2 % (42.2-75.2); PLT 235 X1000 (130-400); RBC 3.58 XMIL (4.2-5.4); RDW 13.1 % (11.5-14.5); WBC 9.49 X1000 (4.8-10.8)
[2018-09-11 09:24] LABS: INR 0.98; PROTIME 13.5 Seconds (11.0-16.0)
--- NOTE | 2018-09-12 12:57 | HISTORY AND PHYSICAL ---
ADMISSION DATE: 09/10/2018 DISCHARGE DATE: 09/11/2018 HISTORY OF PRESENT ILLNESS: The patient is a 32-year-old female, 18 weeks gestation, who is a G4, P2 and has continued nausea and vomiting. Patient has a history of this with prior pregnancies. Presently she is on vitamins, Protonix, Compazine, scopolamine patches and Synthroid. REVIEW OF SYSTEMS: Nausea and vomiting. PAST MEDICAL HISTORY: Unremarkable except for previous history of nausea and vomiting with prior pregnancies. PRIOR PAST SURGICAL HISTORY: Cholecystectomy and section. FAMILY HISTORY: Reviewed and not pertinent. SOCIAL HISTORY: No tobacco, no alcohol. PHYSICAL EXAMINATION: General Appearance: Alert, no acute distress. Eyes: Pupils equal, round, reactive to light and accommodation. Head: Normocephalic, atraumatic. Neck: Supple. No thyromegaly. Lungs: Clear to auscultation. Heart: Regular rate and rhythm. Abdomen: Normal bowel sounds. Soft with some mild tenderness due to her vomiting. Musculoskeletal: Normal. Skin: Warm and dry. Psychiatric: Normal. Vital Signs: Temperature 99.3 degrees, pulse of 84, respirations 20, blood pressure 121/69. LABORATORY DATA: White blood cell count was elevated at 23.9, hemoglobin was 12.4, hematocrit 35.2, platelet count 341,000. Potassium was low at 3.4. Glucose was slightly elevated at 117. The patient had IV fluids in the emergency room but still had continued episodes of vomiting so the decision was made to admit. ASSESSMENT AND PLAN: Intrauterine at 18 weeks with a history of hyperemesis gravidarum and previously had been placed on PICC lines for care to manage . Patient was then transferred to [facility] for care. HOSPITAL COURSE: The patient had continued IV antiemesis medicine and IV fluids. She did improve somewhat but was concerned about her ability to work without having medications readily available to help her, so at this point in time, we will proceed with PICC line placement. She will be discharged and have this PICC line placed as an outpatient at [facility] and then we will move toward IV fluid hydration at nighttime for the patient, Protonix 10 mg IV daily, Compazine 10 mg IV q.6 and a Zofran pump. FOLLOWUP: The patient is to follow up in 2 weeks or sooner if needed. cc: Tadeo Block III, MD
== END 2018-09-11 14:33 | disposition home health service (06) | DRG 833 ==
LOC: ED 21:44 → P.MEDSURG 09-10 02:47 → OBSVTOIN 09-10 02:48 → P.MEDSURG 09-10 02:48 → INTOOBSV 09-10 02:48
PROVIDERS: ADMIT Obstetrics & Gynecology; ATTEND Obstetrics & Gynecology

== ENCOUNTER 2019-02-08 05:20 | Inpatient (IN) ==
--- NOTE | 2019-02-05 20:19 | HISTORY AND PHYSICAL ---
HISTORY OF PRESENT ILLNESS: Patient is a 33-year-old white female, G4, P2, A1 who is due 02/13/2019 by last menstrual period and first-trimester ultrasound, has a history of prior section and will proceed with elective repeat section. Patient is also noted to have a Rh negative status and was given RhoGAM at 28 weeks. Otherwise, care is unremarkable. PAST MEDICAL HISTORY: Significant for hypothyroidism and gastroesophageal reflux disease. PAST SURGICAL HISTORY: section x1, cholecystectomy, and dental surgery. PAST OBSTETRICAL HISTORY: G4, P2, A1. Spontaneous vaginal delivery x1, section x1, spontaneous AB x1. GYNECOLOGICAL HISTORY: Menarche at age 13. REVIEW OF SYSTEMS: All systems reviewed and noncontributory. FAMILY HISTORY: Significant for diabetes mellitus, heart disease, colon cancer. SOCIAL HISTORY: Tobacco use none. Alcohol use none. MEDICATIONS: Levothyroxine 75 mcg daily, Protonix 40 mg daily, Pepcid 20 mg daily, Ambien 5 mg p.r.n., and Benadryl 25 mg p.r.n. ALLERGIES: To prednisone, Reglan. PHYSICAL EXAMINATION: VITAL SIGNS: Height 5 feet 1 inch, weight 176 pounds, temperature 98.4 degrees, blood pressure 94/68, pulse of 96, respirations 18, heart rate in the 130s. HEENT: Pupils equal, round, reactive to light and accommodation. Extraocular movements intact. Oropharynx clear. NECK: Supple. No thyromegaly. LUNGS: Clear to auscultation. HEART: Regular rate and rhythm. ABDOMEN: Gravid, nontender. EXTREMITIES: No clubbing, cyanosis, or edema noted. NEUROLOGIC: Cranial nerves 2 through 12 grossly intact. Motor 5/5. ASSESSMENT AND PLAN: A 33-year-old white female, G4, P2, A1 at 39 weeks gestation for repeat section. Patient counseled about the risks of surgery including bleeding, infection, bowel or bladder injury. cc: Tadeo Block III, MD
[2019-02-08] MEDS ORDERED: KEFZOL 1 GM/D5W 1 GM/50 ML IVPB IV PRN (05:25)
[2019-02-08] MEDS ORDERED: BICITRA PO ONE (05:45)
[2019-02-08] MEDS ORDERED: SODIUM CHLORIDE 0.9% INJ ONE (05:45)
[2019-02-08] MEDS ORDERED: PEPCID IV ONE (05:45)
[2019-02-08 05:58] LABS: URINE SOURCE VOIDED
[2019-02-08] MEDS: LR 1,000 ML IV SCH (06:03)
[2019-02-08 06:06] LABS: BILIRUBIN URINE NEGATIVE (NEGATIVE); BLOOD URINE NEGATIVE (NEGATIVE); COLOR YELLOW; GLUCOSE URINE NEGATIVE (NEGATIVE); KETONE URINE TRACE mg/dL (NEGATIVE); LEUKOCYTES URINE NEGATIVE (NEGATIVE); NITRITE URINE NEGATIVE (NEGATIVE); PH URINE 6.5; PROTEIN URINE 30 mg/dL (NEGATIVE); SP GRAVITY URINE 1.034; TURBIDITY URINE HAZY (CLEAR); UROBILINOGEN URINE NORMAL (NORMAL)
[2019-02-08 06:26] LABS: UR AMPHETAMINES QUAL NONE DETECTED (NONE DETECT); UR BARBITUATES QUAL NONE DETECTED (NONE DETECT); UR BENZODIAZEPIN QUAL NONE DETECTED (NONE DETECT); UR CANNABINOIDS QUAL NONE DETECTED (NONE DETECT); UR COCAINE QUAL NONE DETECTED (NONE DETECT); UR METHADONE QUAL NONE DETECTED (NONE DETECT); UR OPIATES QUAL NONE DETECTED (NONE DETECT); UR OXYCODONE QUAL NONE DETECTED (NONE DETECT); UR PCP QUAL NONE DETECTED (NONE DETECT)
[2019-02-08 06:27] LABS: BASO# 0.02 X1000 (0.0-0.2); BASO% 0.2 % (0.0-0.8); EOS# 0.09 X1000 (0.0-0.7); HEMATOCRIT 35.8 % (37.0-47.0); HEMOGLOBIN 11.9 g/dL (12.0-16.0); IMM GRAN# 0.04 X1000 (0.0-0.04); IMM GRAN% 0.4 % (0.0-0.5); LYMPH# 2.11 X1000 (1.2-3.4); LYMPH% 22.8 % (20.5-51.1); MCHC 33.2 g/dL (33-37); MCV 87.3 FL (81-99); MONO# 0.65 X1000 (0.11-0.59); MPV 10.7 FL (7.4-10.4); NEUT# 6.35 X1000 (1.4-6.5); NEUT% 68.6 % (42.2-75.2); PLT 241 X1000 (130-400); RDW 13.6 % (11.5-14.5); WBC 9.26 X1000 (4.8-10.8)
[2019-02-08] MEDS ORDERED: PITOCIN ONE (06:35)
[2019-02-08] MEDS ORDERED: ZOFRAN ONE (06:37)
[2019-02-08] MEDS ORDERED: FENTANYL ONE (06:44)
[2019-02-08] MEDS ORDERED: EPHEDRINE ONE (07:11)
[2019-02-08] MEDS ORDERED: TORADOL ONE (07:12)
[2019-02-08 07:29] LABS: LYMPHS 22 % (21-51); MONO 7 % (1-9); SEGS 71 % (42-75)
[2019-02-08] MEDS ORDERED: M-M-R II VACCINE SUBQ ONE (08:03)
[2019-02-08] MEDS ORDERED: PITOCIN IM PRN (08:03)
[2019-02-08] MEDS ORDERED: HYDROXYZINE IM PRN (08:03)
[2019-02-08] MEDS ORDERED: MYLICON PO PRN (08:03)
[2019-02-08] MEDS ORDERED: PITOCIN 20 UNITS/NS 20 UNITS/1,000 ML IV.SOLN IV ONE (08:03)
[2019-02-08] MEDS ORDERED: NORCO-5 PO PRN (08:03)
[2019-02-08] MEDS ORDERED: DEMEROL IM PRN (08:03)
[2019-02-08] MEDS ORDERED: DULCOLAX PR PRN (08:03)
[2019-02-08] MEDS ORDERED: PHENERGAN IM PRN (08:03)
[2019-02-08] MEDS ORDERED: DEMEROL PO PRN ×2 (08:03)
[2019-02-08] MEDS ORDERED: BOOSTRIX VACCINE IM ONE (08:03)
[2019-02-08] MEDS ORDERED: AMBIEN PO PRN (08:03)
[2019-02-08] MEDS ORDERED: LR 1,000 ML IV SCH (09:15)
[2019-02-08] MEDS ORDERED: PHENERGAN IV PRN (09:15)
[2019-02-08] MEDS ORDERED: NARCAN IV PRN (09:15)
[2019-02-08] MEDS ORDERED: SODIUM CHLORIDE 0.9% INJ PRN (09:15)
[2019-02-08] MEDS ORDERED: BENADRYL IV PRN (09:15)
[2019-02-08] MEDS: MORPHINE PCA IV PRN ×3 (09:32→20:19)
[2019-02-08] MEDS: PITOCIN 10 UNITS/NS 1,000 ML IV SCH ×2 (09:33→17:45)
[2019-02-08] MEDS ORDERED: MORPHINE IV ONE ×2 (09:39→12:29)
[2019-02-08] MEDS ORDERED: MORPHINE ONE ×2 (09:46)
--- NOTE | 2019-02-08 11:10 | OPERATIVE NOTE ---
PROCEDURE DATE: 02/08/2019 PREOPERATIVE DIAGNOSIS: Intrauterine at 39 and 2/7 weeks with a history of prior section, for elective repeat section. POSTOPERATIVE DIAGNOSIS: Intrauterine at 39 and 2/7 weeks with a history of prior section, for elective repeat section, with operative delivery of a male , 7 pounds 13 ounces, with Apgars of 9 and 10 at 0709 on 02/08/2019. PROCEDURE: Repeat low-transverse section. SURGEON: Tadeo Block III, M.D. [employer] ARCHITECT: FITZ. ANESTHESIA: Spinal, Dr. Lozada. FINDINGS: Normal-appearing uterus, tubes, and ovaries. ESTIMATED BLOOD LOSS: 500 mL. SPECIMENS REMOVED: None. DRAINS: Lind to straight drain. COUNTS: All counts were correct x3. INDICATIONS: The patient is a 33-year-old, white female, G4, P2, A1, at 39 and 2/7 weeks gestation with a history of prior section, for repeat section. The patient was counseled about the risks of surgery, including bleeding, infection, bowel or bladder injury. DESCRIPTION OF PROCEDURE: The patient was taken to Labor and Delivery OR. Spinal anesthesia was then placed, and the patient was then put in the dorsal lithotomy position with a roll under the right hip. She was prepped and draped in a sterile fashion, with placement of Lind catheter. Adequate anesthesia was noted by using Allis clamps on skin, and a Pfannenstiel skin incision was made on the lower abdomen using a scalpel. This was then taken down sharply through the fascia layer. A small elma was made in the rectus fascia. Fascial incision was then extended bilaterally by curved Pagan scissors, and then blunt and sharp dissection of the superior and inferior aspects of the rectus fascia. Rectus muscle was divided in the midline. Peritoneal layer was entered bluntly. The peritoneal incision was extended superiorly and inferiorly with care taken to avoid the bladder. Bladder reflection was created using Metzenbaum scissors. Then, bladder blade was placed into the abdominal cavity. A transverse incision was made on the lower uterine segment using a scalpel. This was extended bilaterally by the surgeon's fingers. Clear fluid was noted upon entry. The patient then had delivery of a male infant, 7 pounds 13 ounces, with Apgars of 9 and 10 at 0709 on 02/08/2019. was bulb suctioned of nose and mouth, and then the delivery of the rest of the fetus was accomplished with gentle fundal pressure. Umbilical cord was clamped twice and cut. handed to nursery nurse in attendance for delivery. Cord blood sample was obtained at this time. Placenta was then manually extracted. The uterus was exteriorized. Wet lap was placed around the uterus. Dry lap was then used to curette the uterine cavity of clots and debris x2. Uterine incision was then closed using 0 chromic in a running locking fashion x1. A small area of oozing was noted in the midportion of the incision, and made hemostatic with an interrupted stitch of 0 chromic. Inspection of the bladder reflection had a small area of oozing, made hemostatic with electrocautery. The posterior cul-de-sac was then irrigated copiously with saline. Then, the uterus was replaced back into the abdominal cavity. Pericolic gutters were cleansed using moist lap sponges. Uterine incision and bladder reflection were inspected. Good hemostasis was noted. Peritoneal layer was then closed using 2-0 chromic in a running fashion x1. The rectus muscle was then reapproximated with interrupted stitches of 2-0 chromic. PDS was then used to close the fascial layer in a running fashion x1. The subcutaneous layer was then irrigated with saline, and electrocautery was used to obtain hemostasis. The skin was reapproximated using lamin. The patient tolerated the procedure well, and was taken to the recovery room in stable condition. All counts were correct x3. cc: Tadeo Block III, MD
[2019-02-08] MEDS: MYLICON PO SCH ×4 (13:02→23:39)
[2019-02-08] MEDS: TORADOL IV SCH ×3 (13:52→20:12)
[2019-02-08] MEDS: ZOFRAN IV PRN ×3 (14:12→22:44)
[2019-02-08] MEDS: PERICOLACE PO SCH (23:36)
[2019-02-09] MEDS: ATARAX PO PRN ×2 (00:36→04:18)
[2019-02-09] MEDS: LR 1,000 ML IV SCH (01:40)
[2019-02-09] MEDS: TORADOL IV SCH (02:02)
[2019-02-09 06:59] LABS: BASO# 0.02 X1000 (0.0-0.2); BASO% 0.2 % (0.0-0.8); EOS# 0.09 X1000 (0.0-0.7); EOS% 0.9 % (0.0-10.0); HEMATOCRIT 28.8 % (37.0-47.0); HEMOGLOBIN 9.1 g/dL (12.0-16.0); IMM GRAN# 0.02 X1000 (0.0-0.04); IMM GRAN% 0.2 % (0.0-0.5); LYMPH# 1.67 X1000 (1.2-3.4); LYMPH% 15.8 % (20.5-51.1); MCH 28.6 PG (27-31); MCHC 31.6 g/dL (33-37); MCV 90.6 FL (81-99); MONO# 0.85 X1000 (0.11-0.59); MPV 10.3 FL (7.4-10.4); NEUT# 7.92 X1000 (1.4-6.5); NEUT% 74.9 % (42.2-75.2); PLT 197 X1000 (130-400); RBC 3.18 XMIL (4.2-5.4); RDW 13.7 % (11.5-14.5); WBC 10.57 X1000 (4.8-10.8)
[2019-02-09] MEDS ORDERED: LR 1,000 ML IV SCH (08:03)
[2019-02-09] MEDS: MYLICON PO SCH ×5 (08:40→20:51)
[2019-02-09] MEDS: MOTRIN PO PRN ×2 (08:44→15:33)
[2019-02-09] MEDS ORDERED: NEOSPORIN OINTMENT PACKET TOP ONE (11:21)
[2019-02-09] MEDS: NORCO-10 PO PRN ×4 (11:32→21:33)
[2019-02-09] MEDS: PERICOLACE PO SCH (20:50)
[2019-02-10] MEDS: MOTRIN PO PRN ×2 (00:08→08:52)
[2019-02-10] MEDS: NORCO-10 PO PRN ×2 (01:32→04:30)
[2019-02-10] MEDS ORDERED: PROTONIX PO SCH (07:00)
[2019-02-10] MEDS ORDERED: SYNTHROID PO SCH (07:00)
[2019-02-10] MEDS ORDERED: PEPCID PO ONE (07:29)
[2019-02-10] MEDS: MYLICON PO SCH ×2 (08:32→13:07)
[2019-02-10] MEDS: PERCOCET-10 PO PRN ×2 (08:53→13:07)
[2019-02-10 09:27] VITALS: BP 110/58
[2019-02-11] MEDS ORDERED: PEPCID PO SCH (09:00)
--- NOTE | 2019-02-11 12:26 | DISCHARGE SUMMARY ---
ADMISSION DATE: 02/08/2019 DISCHARGE DATE: 02/10/2019 ADMISSION DIAGNOSIS: Intrauterine at 39 weeks with history of prior section for elective repeat section. POSTOPERATIVE DIAGNOSIS: Intrauterine at 39 weeks with history of prior section for elective repeat section, with operative delivery of a male , 7 pounds 13 ounces, with Apgars of 9 and 10, at 0709 on 02/08/2019. PROCEDURE: Repeat low transverse section. BRIEF HISTORY: The patient is a 33-year-old, white female, G4, P2, A1, whose due date is 02/13/2019 by last menstrual period and first-trimester ultrasound. She has a history of prior section, and will proceed with elective repeat section. Patient noted to have Rh negative status, and was given RhoGAM at 28 weeks. Otherwise, care unremarkable, except for reflux issues and nausea. PAST MEDICAL HISTORY: Significant for hypothyroidism and gastroesophageal reflux disease. PAST SURGICAL HISTORY: section x1, cholecystectomy, and dental surgery. PAST OB HISTORY: G4, P2, A1. Spontaneous vaginal delivery x1. section x1. Spontaneous AB x1. 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 REVIEW OF SYSTEMS: All systems were reviewed and noncontributory. FAMILY HISTORY: Significant for diabetes mellitus, heart disease, colon cancer. SOCIAL HISTORY: Tobacco use: None. Alcohol use: None. MEDICATIONS: Levothyroxine 75 mcg daily, Protonix 40 mg daily, Pepcid 20 mg daily, Ambien 5 mg p.r.n., Benadryl 25 mg p.r.n. ALLERGIES: Prednisone and Reglan. PHYSICAL EXAMINATION: Vital Signs: Height 5 feet 1 inch, weight 176 pounds. Temperature 98.4 degrees, blood pressure 94/68, pulse of 96, respirations 18. heart rate in the 130s. HEENT: Pupils equal, round, reactive to light accommodation. Extraocular movements intact. Oropharynx clear. Neck: Supple. No thyromegaly. Lungs: Clear to auscultation. Heart: Regular rate and rhythm. Abdomen: Gravid, nontender. Extremities: No clubbing, cyanosis, or edema noted. Neurologic: Cranial nerves II through XII grossly intact. Motor 5/5. ASSESSMENT AND PLAN: A 33-year-old white female, G4, P2, A1 at 39 and 2/7 weeks, with history of section, for repeat section. Patient counseled about the risks of surgery, including bleeding, infection, bowel or bladder injury. HOSPITAL COURSE: The patient, on 02/08/2019, had a repeat section and delivery of a male infant, 7 pounds 13 ounces, with Apgars of 9 and 10 at 0709 on 02/08/2019. The patient's postoperative course was uneventful. Her postop hemoglobin was 9.1, postop hematocrit was 28.8. She had good urine output and had stable vital signs. She was advanced on her diet as tolerated, and also became ambulatory. The patient's Rh status was noted to be negative, and the was checked and blood type for the was A negative, so RhoGAM was not necessary. On postop day #2, the patient was doing well, having positive flatus, and expressed desire to be discharged home. DISCHARGE PLANS: The patient will be discharged home. Follow up in 1 week for staple removal and postop check. Patient given instructions on pelvic rest and lifting precautions for 6 weeks. The patient is to continue her own medications, levothyroxine 75 mcg daily, Protonix 40 mg daily, Pepcid 20 mg daily, and she will receive medications for Percocet 10, dispensed 20 with no refills. Also, Colace 100 mg, dispensed 30 with 1 refill, Motrin 800 mg tablets, dispensed 30 with 1 refill, and iron sulfate 325 mg, dispensed 30 with 1 refill. cc: Tadeo Block III, MD
== END 2019-02-10 13:45 | disposition home or self-care (01) ==
LOC: LD 05:20
PROVIDERS: ADMIT Obstetrics & Gynecology; ATTEND Obstetrics & Gynecology

== ENCOUNTER 2019-06-16 07:53 | Inpatient (IN) ==
[2019-06-16] MEDS ORDERED: ZOFRAN IV ONE (08:21)
[2019-06-16] MEDS ORDERED: NS 1,000 ML IV ONE ×2 (08:21→10:04)
[2019-06-16 08:51] LABS: BASO# 0.04 X1000 (0.0-0.2); BASO% 0.2 % (0.0-0.8); EOS# 0.01 X1000 (0.0-0.7); EOS% 0.1 % (0.0-10.0); HEMATOCRIT 45.4 % (37.0-47.0); HEMOGLOBIN 15.5 g/dL (12.0-16.0); IMM GRAN# 0.04 X1000 (0.0-0.04); IMM GRAN% 0.2 % (0.0-0.5); LYMPH# 2.39 X1000 (1.2-3.4); LYMPH% 13.3 % (20.5-51.1); MCH 29.1 PG (27-31); MCHC 34.1 g/dL (33-37); MCV 85.3 FL (81-99); MONO# 1.51 X1000 (0.11-0.59); MONO% 8.4 % (1.7-9.3); MPV 9.9 FL (7.4-10.4); NEUT# 14.02 X1000 (1.4-6.5); NEUT% 77.8 % (42.2-75.2); PLT 495 X1000 (130-400); RBC 5.32 XMIL (4.2-5.4); RDW 14.4 % (11.5-14.5); WBC 18.01 X1000 (4.8-10.8)
[2019-06-16 08:51] LABS: URINE SOURCE CLEAN CATCH
[2019-06-16 08:52] LABS: BILIRUBIN URINE SMALL (NEGATIVE); BLOOD URINE TRACE (NEGATIVE); COLOR ORANGE; GLUCOSE URINE TRACE mg/dL (NEGATIVE); KETONE URINE 10 mg/dL (NEGATIVE); LEUKOCYTES URINE NEGATIVE (NEGATIVE); NITRITE URINE NEGATIVE (NEGATIVE); PROTEIN URINE 600 mg/dL (NEGATIVE); SP GRAVITY URINE 1.034; TURBIDITY URINE HAZY (CLEAR); UROBILINOGEN URINE 2 mg/dL (NORMAL)
[2019-06-16 09:01] LABS: UR EPITHELIAL CELLS >10 /HPF (<10); URINE BACTERIA 1+ /HPF; URINE RBC <10 /HPF (<10)
[2019-06-16 09:13] LABS: URINE CASTS NONE SEEN; URINE CRYSTALS NONE SEEN; URINE SMALL ROUND CELLS NONE SEEN; URINE YEAST NONE SEEN
[2019-06-16 09:16] LABS: AGAP 18; ALBUMIN 5.2 g/dL (3.5-5.0); ALKALINE PHOSPHATASE 56 U/L (32-104); BUN 18 mg/dL (8-22); CALCIUM 9.6 mg/dL (8.8-10.2); CHLORIDE 95 mmol/L (98-107); COSMO 280; CREATININE 0.7 mg/dL (0.5-0.9); ESTIMATED GFR > 60; GLUCOSE 136 mg/dL (70-104); GOT 39 U/L (10-30); GPT 40 U/L (10-36); LIPASE 25 U/L (13-60); SODIUM 138 mmol/L (136-145); TCO2 25 mmol/L (25-35); TOTAL PROTEIN 8.7 g/dL (6.3-8.3)
[2019-06-16] MEDS ORDERED: PHENERGAN IM ONE (09:17)
[2019-06-16] MEDS ORDERED: KLOR-CON PO ONE (10:34)
--- NOTE | 2019-06-16 11:10 | Diag Imaging Result Doc PS360 ---
EXAM: CT ABD/PELVIS W/PO AND IV CON HISTORY: abdo pain, N/V TECHNIQUE: CT abdomen and pelvis with intravenous contrast, but without oral contrast. COMPARISON: 12/28/2017 FINDINGS: There is a small hiatal hernia. The gallbladder has been removed. No focal hepatic abnormality. Normal spleen, pancreas, adrenal glands, and kidneys. No hydronephrosis. Normal aorta. No bowel obstruction. No abscess. No ascites. The urinary bladder is mildly distended and appears normal. Normal uterus and ovaries. IMPRESSION: 1.Cholecystectomy 2.Small hiatal hernia This exam was performed using automated exposure control, adjustment of mA or kV according to patient size, and/or use of iterative reconstruction technique. Electronically signed by Chan Briones 06/16/2019 11:08 AM
--- NOTE | 2019-06-16 11:15 | PROVIDER DOCUMENTATION ---
This chart was entered by Mackenzie Mcclure Scribe, acting as scribe for Adam Mccoy MD. HPI-Abdominal Pain/GI Problem - General Chief Complaint: N/V/D Stated Complaint: N/V/D Time Seen by Provider: 06/16/19 08:05 Source: patient Allergies/Adverse Reactions: Patient Allergies Allergy/AdvReac Type Severity Reaction Status Date / Time metaxalone [From Skelaxin] AdvReac NAUSEA/VOMITING Verified 06/16/19 08:05 anxiety metoclopramide [From Reglan] AdvReac NAUSEA/VOMI Verified 06/16/19 08:05 TING prednisone AdvReac NAUSEA/VOMI Verified 06/16/19 08:05 TING Home Medications: Home Medication List Medication Instructions Recorded Confirmed Last Taken Type Levothyroxine [Synthroid] 75 microgm PO DAILY@0700 tab 02/10/19 06/16/19 Unknown Rx - History of Present Illness-ABD Nature of Presenting Problems: 33yof presents to ED cc nausea, vomiting(100 episodes in last 24hrs), diarrhea(1 episode) and feels dehydrated since Friday. She denies F/C/SOB/Cough/Wheezing/known contacts with COVID-19/recent travel. Pt has hx of gastritis and hypothyroidism. She is nontoxic and in no apparent distress upon exam. Abdominal Pain Onset Location: reports: epigastric Pain Radiation: reports: no radiation Quality of Pain: reports: aching Severity in ED: reports: mild Onset/Duration: reports: 4 days ago Timing: reports: still present Activities at Onset: reports: light activity Exposure to sick contacts?: No Modifying Factors: improves with: nothing Associated Symptoms: reports: diarrhea, nausea, vomiting. denies: cough, EENT symptoms, fever/chills, sinus congestion/drainage, shortness of breath Last BM: 4 days ago Dark Stools Present?: reports: none noticed Rectal Bleeding: reports: none # of Diarrhea Episodes: 1 Rectal Pain: reports: none Emesis Description: reports: clear Bruising or Bleeding Gums?: No Similar Symptoms Previously?: No Recently seen or treated by another doctor?: No Review of Systems - Adult - REVIEW OF SYSTEMS - ADULT Constitutional: reports: see HPI. denies: chills, fever, fatique Eyes: reports: no symptoms reported Ears, Nose, Mouth & Throat: reports: see HPI, other (feels dehydrated). denies: ear pain, sinus problem, throat pain Cardiovascular: reports: no symptoms reported Respiratory: reports: see HPI. denies: cough, shortness of breath, wheezing Gastrointestinal: reports: see HPI, abdominal pain (epigastric), diarrhea (1 episode), nausea, vomiting (100 episodes) Genitourinary: reports: no symptoms reported Musculoskeletal: reports: no symptoms reported Integumentary: reports: no symptoms reported Neurological: reports: no symptoms reported Psychiatric: reports: no symptoms reported Endocrine: reports: no symptoms reported Hematologic/Lymphatic: reports: no symptoms reported Allergic/Immunologic: reports: no symptoms reported All Other Systems: Reviewed and Negative Past History - Adult - PAST MEDICAL HISTORY-ADULT Review of Records: reports: Nursing Assessment Review, Medications Reviewed, Social history reviewed & non-contributory. Major Childhood Illnesses: reports: denies history Cardiovascular: reports: denies history Respiratory: reports: denies history Gastrointestinal: reports: denies history Obstetrical/Gynecological: reports: denies history Genitourinary: reports: denies history Musculoskeletal: reports: denies history Neurological: reports: denies history Psychiatric: reports: denies history Endocrine/Immune: reports: denies history Other Conditions: reports: denies history - PRIOR SURGERIES/PROCEDURES Surgical/Procedure History: reports: cholecystectomy, - IMMUNIZATION STATUS Childhood Immunizations: See Nurse Assessment Flu Vaccine: See Nurse Assessment - FAMILY HISTORY Family History: reviewed, not pertinent - SOCIAL HISTORY Smoking: quit greater than 1 year Physical Exam-General - PHYSICAL EXAM-ADULT Initial Vital Signs Reviewed: Yes - CONSTITUTIONAL General Appearance: appears well, alert, no apparent distress. negative: anxious, combative - EYES Eyes: PERRL/EOMI, pink conjunctivae. negative: photophobia - HEAD, EARS, NOSE, MOUTH & THROAT HENMT: normocephalic/atraumatic, moist mucous membranes, normal ENT inspection. negative: angioedema - NECK Neck: non-tender, full range of motion, supple, normal inspection. negative: lymphadenopathy - RESPIRATORY Respiratory: chest non-tender, lungs clear, normal breath sounds. negative: rhonchi, wheezing - CARDIOVASCULAR Cardiovascular: normal peripheral pulses, regular rate, rhythm, no edema, no m urmur. negative: bradycardia, tachycardia - GASTROINTESTINAL (ABDOMEN) Abdominal Exam: normal bowel sounds, soft, no organomegaly, no pulsatile mass, tenderness (mild epigastric). negative: distended, rigid - LYMPHATIC Lymphatic: no adenopathy. negative: enlargement - MUSCULOSKELETAL Back Exam: normal inspection, no CVA tenderness, no vertebral tenderness Extremity: normal range of motion, non-tender, normal gait, normal inspection, no pedal edema, no calf tenderness, normal capillary refill. negative: deformity - SKIN Integumentary: normal color, normal turgor, warm/dry. negative: diaphoresis, erythema, rash - NEUROLOGIC Neurologic: java support engineer II-XII nml as tested, grossly normal - PSYCHIATRIC Psych/Mental Status: normal mood/affect, oriented x 3. negative: anxious, disheveled Progress - PLAN OF CARE/RESULTS Progress/Plan/Lab Results: Vital Signs - 8 hr 06/16/19 07:54 06/16/19 08:49 Temperature 97.4 F L Pulse Rate 84 70 Respiratory Rate 18 21 Blood Pressure 111/76 100/64 O2 Sat by Pulse Oximetry 100 97 Bedside Urine ED: Urine Bedside Start: 06/16/19 08:21 Freq: ORDERED Status: Active Protocol: Activity Type Activity Date Activity User E-Sign Co-Sign Detail Recorded Client Recorded Date Recorded By Document 06/16/19 08:45 [id number] 06/16/19 08:45 [id number] 06/16/19 08:45 Point of Care [Bedside Point of Care] -Lot # [id number] - Results Negative -Control Line Visible? Yes Laboratory Results - last 24 hr 06/16/19 06/16/19 08:44 08:45 WBC 18.01 H RBC 5.32 Hgb 15.5 Hct 45.4 MCV 85.3 MCH 29.1 MCHC 34.1 RDW Std Deviation 14.4 Plt Count 495 H MPV 9.9 Immature Gran % (Auto) 0.2 Neut % (Auto) 77.8 H Lymph % (Auto) 13.3 L [place] % (Auto) 8.4 Eos % (Auto) 0.1 Baso % (Auto) 0.2 Immature Gran # (Auto) 0.04 Neut # (Auto) 14.02 H Lymph # (Auto) 2.39 [place] # (Auto) 1.51 H Eos # (Auto) 0.01 Baso # (Auto) 0.04 Urine Source CLEAN CATCH Urine Color ORANGE Urine Turbidity HAZY Urine pH 6.0 Ur Specific [place] 1.034 Urine Protein 600 A Ur Glucose (Stick) TRACE Ur Ketones (Stick) 10 A Urine Blood TRACE A Urine Nitrite NEGATIVE Urine Bilirubin SMALL A Urobilinogen Dipstick 2 A Urine Leukocytes NEGATIVE Urine WBC (Auto) 10-20 A Urine RBC (Auto) <10 U Epithel Cells (Auto) >10 A Urine Bacteria (Auto) 1+ Orders Category Date Time Status ED: Urine Bedside ORDERED Care 06/16/19 08:21 Active Saline Loc DIRECTED Care 06/16/19 08:00 Active NPO Diet 06/16/19 08:00 Active AMYLASE [CHEM] Stat Lab 06/16/19 08:44 Received CBC WITH ELECTRONIC DIFF [HEME] Stat Lab 06/16/19 08:44 Completed COMPREHENSIVE METABOLIC PANEL [CHEM] Stat Lab 06/16/19 08:44 Received LIPASE [CHEM] Stat Lab 06/16/19 08:44 Received URINALYSIS W/POSS RFLX CULT [URINALYSIS] Stat Lab 06/16/19 08:45 Results URINE MANUAL MICROSCOPIC [URINALYSIS] Stat Lab 06/16/19 08:45 Results 0.9% Sodium Chloride Inj [Ns] 1,000 ml Med 06/16/19 08:21 Active IV 999 mls/hr Ondansetron [Zofran] Med 06/16/19 08:21 Discontinued 4 mg IV NOW ONE Result Diagrams: 06/16/19 08:44 06/16/19 08:44 - CT/MRI 1 CT Study: Abdomen, Pelvis Impression: Normal, See EMR Report ([facility] - [address] [place] [address] [place], [place] [id number] [facility] - [address] [place] [address] Department of Imaging Patient: GUTIERREZ BLAKE EADM Date: 06/16/19#: [id number] : 1985ADM Status: [facility] ERAcct#: [id number] Age/Sex: 33/FRoom/Bed: Loc: P.ED Ordering Physician: Adam Mccoy MD Family Physician: Kym Aguilera Reason for Procedure: abdo pain, N/V Signed EXAM: CT ABD/PELVIS W/PO AND IV CON HISTORY: abdo pain, N/V TECHNIQUE: CT abdomen and pelvis with intravenous contrast, but without oral contrast. COMPARISON: 12/28/2017 FINDINGS: There is a small hiatal hernia. The gallbladder has been removed. No focal hepatic abnormality. Normal spleen, pancreas, adrenal glands, and kidneys. No hydronephrosis. Normal aorta. No bowel obstruction. No abscess. No ascites. The urinary bladder is mildly distended and appears normal. Normal uterus and ovaries. IMPRESSION: 1.Cholecystectomy 2.Small hiatal hernia This exam was performed using automated exposure control, adjustment of mA or kV according to patient size, and/or use of iterative reconstruction technique. Electronically signed by Chan Briones 06/16/2019 11:08 AM 06/16/19 1108 Interpreting Physician: Chan Briones MD Dictated Date/Time: 06/16/19 1103 cc: Adam Mccoy MD; Kym Aguilera) - CONSULTS/PCP/HOSPITALIST Notification #1 *Consult/PCP/Hospitalist*: Dr Middleton Time Discussed: 11:14 Consult Disposition: Will see in ED, Admit Departure - Departure Date of Disposition Decision: 06/16/19 Time of Disposition Decision: 11:13 DIAGNOSIS: Hypothyroid, Intractable nausea and vomiting, Leukocytosis Disposition: ADMITTED INPATIENT 09 Certified Medical Emergency: Emergent Condition: Fair Additional Instructions: ED Follow Up Instructions: You have been treated by a care provider in the Emergency Department. These instructions are being provided to you so you can have an understanding of how to care for yourself upon discharge. Upon discharge from the Emergency Department, you are responsible for making arrangements for follow-up care by a physician of your choice. Take all prescribed medications as directed. Return to the Emergency Department immediately for any new or worsening symptoms. You may call the Physician Referral phone number at [phone] to obtain a list of Physicians who are taking new patients. Referrals and Follow-Ups: Kym Aguilera [Primary Care Provider] - - Critical Care Note This patient required my direct & personal management of CC.: No Attestation - Physician/ HELADIO Attestation Patient care was provided by Advanced Practice Provider:: No The physician spent face to face time with patient:: Yes Advanced Practice Provider documentation review:: Supervising physician onsite and consulted in the evaluation and care of this patient. The physician did have a face to face encounter with the patient. This chart was documented by the indicated scribe, (Mackenzie Mcclure Scribe) and accurately reflects the services I performed and decisions made by me, Adam Mccoy MD, as attested by the provider's signature.
[2019-06-16] MEDS ORDERED: PHENERGAN IV ONE ×2 (11:54→14:24)
[2019-06-16] MEDS ORDERED: SODIUM CHLORIDE 0.9% INJ ONE ×2 (11:54→14:24)
[2019-06-16] MEDS ORDERED: TYLENOL PO PRN (12:46)
[2019-06-16] MEDS: ZOFRAN IV PRN ×3 (13:16→22:24)
[2019-06-16] MEDS: NS 1,000 ML IV SCH (13:16)
--- NOTE | 2019-06-16 17:39 | HISTORY AND PHYSICAL ---
CHIEF COMPLAINT: Nausea and vomiting. HISTORY OF PRESENT ILLNESS: The patient is a 33-year-old female who presented to the emergency department with nausea and vomiting. She states that she has vomited 100 times in the past 24 hours. Denies any blood in her emesis. Denies any fevers or chills. She states that she has had 1 diarrhea. Episode. She states she has been dehydrated since Friday. She states she normally gets Compazine. ALLERGIES: Skelaxin and Reglan causing nausea and vomiting. Prednisone causing nausea and vomiting. MEDICATIONS: Synthroid 75. REVIEW OF SYSTEMS: As noted above. She states that she has vomited 100 times in the past 24 hours. Denies any hematemesis, melena, or hematochezia. Denies dysuria or urinary frequency. Denies constipation. Denies skin rashes, weight loss, or weight gain, although states she does not check her weight on any regular basis. Denies fevers, chills, cough, or congestion. PAST MEDICAL HISTORY: Significant for recurrent vomiting or gastroparesis. PAST SURGICAL HISTORY: She has had a cholecystectomy and a . FAMILY HISTORY: Noncontributory. SOCIAL HISTORY: The patient notes she stopped smoking a year ago. Does not drink or use illicit substances. PHYSICAL EXAMINATION: VITAL SIGNS: Reviewed. Temperature 97.4 degrees, pulse 74, respiratory rate 18, and BP 111/76. GENERAL: Patient is awake and pleasant. She is in no current respiratory distress. HEENT: Normocephalic. NECK: Supple. CARDIOVASCULAR: Regular rate. CHEST: Clear and nonlabored. ABDOMEN: Soft. Diffusely tender. Nondistended. EXTREMITIES: Moves all extremities. NEUROLOGIC: No focal changes. SKIN: Warm and dry. No rashes. ASSESSMENT: 1. Nausea and vomiting. 2. Hypothyroidism. 3. Mild leukocytosis at 18,000. PLAN: I am going to admit patient to the hospital. IV fluids. Discussed with her the perils of Compazine. Therefore, we are not going to use that at the moment. She certainly looks good to have been vomiting 100 times in the past 24 hours, and have kept not an ounce of liquid down since Friday, greater than 72 hours ago given that her BUN is 18 and creatinine 0.7. We are going to replace her potassium, which is 3.0, and we will follow. cc: Bebo Middleton MD
[2019-06-17] MEDS: NS 1,000 ML IV SCH (03:20)
[2019-06-17] MEDS: ZOFRAN IV PRN ×2 (04:39→08:41)
[2019-06-17 05:49] LABS: HEMATOCRIT 42.1 % (37.0-47.0); HEMOGLOBIN 13.6 g/dL (12.0-16.0); MCH 28.6 PG (27-31); MCHC 32.3 g/dL (33-37); MCV 88.6 FL (81-99); MPV 9.6 FL (7.4-10.4); RBC 4.75 XMIL (4.2-5.4); RDW 14.4 % (11.5-14.5); WBC 9.81 X1000 (4.8-10.8)
[2019-06-17 06:06] LABS: AGAP 14; ALKALINE PHOSPHATASE 47 U/L (32-104); BUN 9 mg/dL (8-22); CALCIUM 8.2 mg/dL (8.8-10.2); CHLORIDE 103 mmol/L (98-107); COSMO 282; CREATININE 0.5 mg/dL (0.5-0.9); ESTIMATED GFR > 60; GLUCOSE 100 mg/dL (70-104); GOT 34 U/L (10-30); GPT 52 U/L (10-36); MAGNESIUM 2.4 mg/dL (1.5-2.7); SODIUM 142 mmol/L (136-145); TCO2 26 mmol/L (25-35); TOTAL PROTEIN 6.9 g/dL (6.3-8.3)
[2019-06-17] MEDS: SYNTHROID PO SCH (06:27)
[2019-06-17] MEDS: PHENERGAN PO PRN ×2 (14:58→22:56)
--- NOTE | 2019-06-17 23:01 | PROGRESS NOTE ---
DATE: 06/17/2019 SUBJECTIVE: Patient notes this morning that she is feeling better. This afternoon she states that she was able to keep down liquids and seems to be improving although still nauseated. PHYSICAL EXAMINATION: Vital Signs: Temperature 98 degrees, pulse 74, respiratory 18, BP 102/71. General: Patient is awake. She is pleasant. She is in no distress. Her color appears to be improved from this morning. HEENT: Normocephalic. Neck: Supple. Cardiovascular: Regular rate. Chest: Clear. Abdomen: Soft, diffusely but minimally tender. No real right upper quadrant tenderness or pain. Extremities: Moves all extremities. Neurologic: No changes. ASSESSMENT: 1. Hypokalemia. We will replace. 2. Hyperbilirubinemia. The patient has a history of cholecystectomy. We are going to recheck this in the morning. Hopefully, this will improve. If not, we will check an ultrasound and possibly HIDA scan. Labs in the a.m. If it is improved, we are going to advance her diet. If not, we are going to check an ultrasound and possibly will need an MRCP. 3. Mild leukocytosis, resolved. PLAN: As noted above, we are going to recheck labs in the morning. Hopefully advance diet if improved. Did discuss with Ms. Garcia that at no point will I talk with her [id number] in the future. The [id number] apparently had called my office multiple times a day as well as my office answering service despite the fact that Ms. Garcia is a patient of Kym Mccauley and is only being seen in the hospitalist fashion. I attempted to discuss this with the [id number] who then became irate on the phone, started yelling obscenities, claiming that I was only a pill mill doctor and at which point I hung up on her. Ms. Garcia is fully aware of her mother-in- law's "issues." This was per the patient. She understands and agrees with the plan. cc: Bebo Middleton MD
[2019-06-18] MEDS: SYNTHROID PO SCH ×2 (05:43→06:25)
[2019-06-18] MEDS: PHENERGAN PO PRN (05:43)
[2019-06-18 05:48] LABS: HEMATOCRIT 43.7 % (37.0-47.0); HEMOGLOBIN 14.4 g/dL (12.0-16.0); MCH 28.7 PG (27-31); MCV 87.2 FL (81-99); MPV 9.6 FL (7.4-10.4); RBC 5.01 XMIL (4.2-5.4); RDW 14.1 % (11.5-14.5); WBC 10.15 X1000 (4.8-10.8)
[2019-06-18 06:08] LABS: AGAP 13; ALBUMIN 4.2 g/dL (3.5-5.0); ALKALINE PHOSPHATASE 50 U/L (32-104); BUN 7 mg/dL (8-22); CALCIUM 8.9 mg/dL (8.8-10.2); CHLORIDE 96 mmol/L (98-107); COSMO 272; CREATININE 0.6 mg/dL (0.5-0.9); ESTIMATED GFR > 60; GLUCOSE 106 mg/dL (70-104); GOT 17 U/L (10-30); GPT 42 U/L (10-36); POTASSIUM 3.2 mmol/L (3.5-5.1); SODIUM 137 mmol/L (136-145); TCO2 28 mmol/L (25-35)
--- NOTE | 2019-06-18 08:29 | Diag Imaging Result Doc PS360 ---
EXAM: US ABDOMEN-COMPLETE HISTORY: elevated T bili TECHNIQUE: Abdominal ultrasound COMPARISON: CT from 06/16/2019 FINDINGS: No abdominal aortic aneurysm. Normal inferior vena cava. Normal pancreatic head and body. The pancreatic tail is obscured. The gallbladder has been removed. No focal hepatic abnormality. The common bile duct measures 6 mm. Normal kidneys. No hydronephrosis. Spleen is not enlarged. No ascites. IMPRESSION: Cholecystectomy Electronically signed by Chan Briones 06/18/2019 8:27 AM
--- NOTE | 2019-06-18 11:25 | Diag Imaging Result Doc PS360 ---
EXAM: MRI MRCP (ABD W/O CONTRAST) HISTORY: elevated T bili TECHNIQUE: MR abdomen without contrast. MRCP images COMPARISON: Recent CT and ultrasound FINDINGS: The common bile duct is not dilated. No filling defect identified. No stricture. The gallbladder has been removed. Normal liver, spleen, pancreas, adrenal glands, and kidneys. No aortic aneurysm. No bowel obstruction. IMPRESSION: Normal common bile duct. Electronically signed by Chan Briones 06/18/2019 11:22 AM
[2019-06-18 14:05] VITALS: BP 119/70
--- NOTE | 2019-06-19 05:27 | DISCHARGE SUMMARY ---
ADMISSION DATE: 06/16/2019 DISCHARGE DATE: 06/18/2019 DISCHARGE DIAGNOSIS: 1. Hyperbilirubinemia of undetermined origin. 2. Hypokalemia, resolved. 3. Nausea, vomiting, resolved. 4. Abdominal pain, resolved. CONSULTATIONS: None. PROCEDURES: None. BRIEF HOSPITAL COURSE: Patient was admitted to the hospital with nausea, vomiting, abdominal pain. Notes that she had close to 100 times of emesis in the past 24 hours prior to admission. Thankfully, however, her BUN and creatinine were perfectly normal. Did have a mildly elevated total bilirubin which stayed that way throughout the hospital stay. She had an ultrasound which was normal. Had an MRCP which did not demonstrate any stones. On discharge, her emesis has resolved. She is able to tolerate a full diet. DISPOSITION: Patient will be discharged home. Discussed with her that she likely will need to have a full GI workup with colonoscopy and EGD although these are currently not medically emergent and given the state of COVID-19 and that everything has been postponed she will go home and follow up outpatient with GI. Discussed to continue to advance diet slowly. No other changes made on her medications. Her TSH was elevated at 9 although she notes she had not taken her Synthroid for 3 to 4 days prior to hospitalization. cc: Bebo Middleton MD
[2019-06-19 12:30] LABS: HEPATITIS PROFILE ACUTE SEE COMMENTS
== END 2019-06-18 19:49 | disposition home or self-care (01) | DRG 392 ==
LOC: P.ED 07:53 → P.MEDSURG 13:21
PROVIDERS: ATTEND Family Medicine

== ENCOUNTER 2019-06-25 11:31 | Inpatient (IN) ==
[2019-06-25] MEDS ORDERED: PHENERGAN IM ONE (11:44)
[2019-06-25] MEDS ORDERED: NS 1,000 ML IV ONE (12:15)
[2019-06-25 12:27] LABS: URINE SOURCE CLEAN CATCH
[2019-06-25 12:34] LABS: BASO# 0.08 X1000 (0.0-0.2); BASO% 0.5 % (0.0-0.8); EOS# 0.08 X1000 (0.0-0.7); EOS% 0.5 % (0.0-10.0); HEMATOCRIT 46.5 % (37.0-47.0); HEMOGLOBIN 15.7 g/dL (12.0-16.0); IMM GRAN# 0.05 X1000 (0.0-0.04); IMM GRAN% 0.3 % (0.0-0.5); LYMPH# 1.33 X1000 (1.2-3.4); LYMPH% 8.3 % (20.5-51.1); MCH 29.4 PG (27-31); MCHC 33.8 g/dL (33-37); MCV 87.1 FL (81-99); MONO# 0.65 X1000 (0.11-0.59); MONO% 4.1 % (1.7-9.3); MPV 10.7 FL (7.4-10.4); NEUT# 13.75 X1000 (1.4-6.5); NEUT% 86.3 % (42.2-75.2); PLT 385 X1000 (130-400); RBC 5.34 XMIL (4.2-5.4); RDW 14.3 % (11.5-14.5); WBC 15.94 X1000 (4.8-10.8)
[2019-06-25 12:34] LABS: BILIRUBIN URINE NEGATIVE (NEGATIVE); BLOOD URINE NEGATIVE (NEGATIVE); COLOR YELLOW; GLUCOSE URINE TRACE mg/dL (NEGATIVE); KETONE URINE TRACE mg/dL (NEGATIVE); LEUKOCYTES URINE NEGATIVE (NEGATIVE); NITRITE URINE NEGATIVE (NEGATIVE); PROTEIN URINE 100 mg/dL (NEGATIVE); SP GRAVITY URINE 1.031; TURBIDITY URINE HAZY (CLEAR); UROBILINOGEN URINE NORMAL (NORMAL)
[2019-06-25 12:37] LABS: URINE BACTERIA 1+ /HPF; URINE RBC <10 /HPF (<10); URINE WBC <10 /HPF (<10)
--- NOTE | 2019-06-25 12:38 | Diag Imaging Result Doc PS360 ---
EXAM: ABDOMEN FLAT/UPRIGHT 06/25/2019 HISTORY: n/v TECHNIQUE: Flat and upright abdomen COMMENT: There is gas and stool in the ascending colon. There is a paucity of bowel gas elsewhere in the stomach is not distended. There is no evidence organomegaly or mass. There are no previous plain radiographs available for comparison. IMPRESSION: Constipation which appears to be localized to the ascending colon. Electronically signed by Ayaz Ponce 06/25/2019 12:35 PM
[2019-06-25 12:40] LABS: INR 0.93; PROTIME 12.5 Seconds (11.0-16.0)
[2019-06-25 12:41] LABS: PTT 25.4 Seconds (22.3-41.8)
[2019-06-25 12:45] LABS: UR EPITHELIAL CELLS <10 /HPF (<10)
[2019-06-25 12:47] LABS: UR AMPHETAMINES QUAL NONE DETECTED (NONE DETECT); UR BARBITUATES QUAL NONE DETECTED (NONE DETECT); UR BENZODIAZEPIN QUAL PRESUMPTIVE POSITIVE (NONE DETECT); UR CANNABINOIDS QUAL PRESUMPTIVE POSITIVE (NONE DETECT); UR COCAINE QUAL NONE DETECTED (NONE DETECT); UR METHADONE QUAL NONE DETECTED (NONE DETECT); UR OPIATES QUAL NONE DETECTED (NONE DETECT); UR OXYCODONE QUAL NONE DETECTED (NONE DETECT); UR PCP QUAL NONE DETECTED (NONE DETECT)
[2019-06-25 12:59] LABS: AGAP 16; ALB/GLOB RATIO 1.7; ALKALINE PHOSPHATASE 65 U/L (32-104); BUN 5 mg/dL (8-22); CALCIUM 10.2 mg/dL (8.8-10.2); CHLORIDE 98 mmol/L (98-107); COSMO 274; CREATININE 0.7 mg/dL (0.5-0.9); ESTIMATED GFR > 60; GLUCOSE 147 mg/dL (70-104); GOT 25 U/L (10-30); GPT 32 U/L (10-36); POTASSIUM 3.9 mmol/L (3.5-5.1); SODIUM 137 mmol/L (136-145); TCO2 23 mmol/L (25-35); TOTAL BILIRUBIN 0.82 mg/dL (0.20-1.00); TOTAL PROTEIN 7.9 g/dL (6.3-8.3)
[2019-06-25 14:02] LABS: AMYLASE 53 U/L (20-200); LIPASE 20 U/L (13-60)
[2019-06-25] MEDS ORDERED: COMPAZINE IV ONE (14:56)
--- NOTE | 2019-06-25 15:06 | PROVIDER DOCUMENTATION ---
This chart was entered by Robina Gotti Scribe, acting as scribe for Elizabet Hay CRNP. HPI-Abdominal Pain/GI Problem - General Chief Complaint: Nausea/Vomiting Stated Complaint: VOMITING SINCE LAST NIGHT Time Seen by Provider: 06/25/19 11:39 Source: patient Allergies/Adverse Reactions: Patient Allergies Allergy/AdvReac Type Severity Reaction Status Date / Time metaxalone [From Skelaxin] AdvReac NAUSEA/VOMITING Verified 06/16/19 08:05 anxiety metoclopramide [From Reglan] AdvReac NAUSEA/VOMI Verified 06/16/19 08:05 TING prednisone AdvReac NAUSEA/VOMI Verified 06/16/19 08:05 TING Home Medications: Home Medication List Medication Instructions Recorded Confirmed Last Taken Type Levothyroxine [Synthroid] 75 microgm PO DAILY@0700 tab 02/10/19 06/16/19 Unknown Rx - History of Present Illness-ABD Nature of Presenting Problems: 33 yowf presents to the ed with c/o n/v since last night. pt was admitted last week 06/16/2019 for same sx and was admitted for fluids and other tx. today when LOSS PREVENTION GUARD was speaking with pt she admitted to smoking marijuana both times the sx have been present Abdominal Pain Onset Location: reports: generalized abdomen Quality of Pain: reports: cramping Severity in ED: reports: mild Onset/Duration: reports: last night Timing: reports: still present, intermittent Activities at Onset: reports: light activity Modifying Factors: worse with: eating Associated Symptoms: reports: nausea, vomiting. denies: back/neck pain, chest pain, diarrhea, fever/chills, headaches, shortness of breath Last BM: last night Dark Stools Present?: reports: none noticed Rectal Bleeding: reports: none # of Diarrhea Episodes: 0 Rectal Pain: reports: none # of Vomiting Episodes: 15 Emesis Description: reports: other (bile) Bruising or Bleeding Gums?: No Similar Symptoms Previously?: Yes (when smoking THC) Recently seen or treated by another doctor?: Yes (admitted on 06/16/2019) Review of Systems - Adult - REVIEW OF SYSTEMS - ADULT Constitutional: denies: chills, fever Eyes: reports: no symptoms reported Ears, Nose, Mouth & Throat: reports: no symptoms reported Cardiovascular: denies: chest pain, palpitations Respiratory: denies: cough, shortness of breath, wheezing Gastrointestinal: reports: see HPI, abdominal pain, nausea, poor appetite, vomiting Genitourinary: reports: no symptoms reported Musculoskeletal: denies: back pain, neck pain Integumentary: reports: no symptoms reported Neurological: reports: no symptoms reported Psychiatric: reports: no symptoms reported Endocrine: reports: no symptoms reported Hematologic/Lymphatic: reports: no symptoms reported Allergic/Immunologic: reports: no symptoms reported All Other Systems: Reviewed and Negative Past History - Adult - PAST MEDICAL HISTORY-ADULT Review of Records: reports: Old Records Reviewed, Nursing Assessment Review, Medications Reviewed, Social history reviewed & non-contributory. Major Childhood Illnesses: reports: denies history Cardiovascular: reports: denies history Respiratory: reports: denies history Gastrointestinal: reports: denies history Obstetrical/Gynecological: reports: denies history Genitourinary: reports: denies history Musculoskeletal: reports: denies history Neurological: reports: denies history Psychiatric: reports: denies history Endocrine/Immune: reports: denies history Other Conditions: reports: denies history - PRIOR SURGERIES/PROCEDURES Surgical/Procedure History: reports: cholecystectomy, - IMMUNIZATION STATUS Childhood Immunizations: See Nurse Assessment Flu Vaccine: See Nurse Assessment - FAMILY HISTORY Family History: reviewed, not pertinent - SOCIAL HISTORY Smoking: denies Substance Use: marijuana Alcohol Use Frequency: 2-3 times a month Living Situation: family Physical Exam-General - PHYSICAL EXAM-ADULT Initial Vital Signs Reviewed: Yes - CONSTITUTIONAL General Appearance: appears well, alert, mild distress, obese - EYES Eyes: PERRL/EOMI, pink conjunctivae - HEAD, EARS, NOSE, MOUTH & THROAT HENMT: negative: moist mucous membranes (dry) - NECK Neck: full range of motion, supple, normal inspection - RESPIRATORY Respiratory: chest non-tender, lungs clear, normal breath sounds - CARDIOVASCULAR Cardiovascular: normal peripheral pulses, tachycardia (105) - CHEST (BREASTS) Chest/Breast: deferred - GASTROINTESTINAL (ABDOMEN) Abdominal Exam: normal bowel sounds, soft - GENITOURINARY Female Genitalia/Pelvic Exam: deferred Rectal Exam: deferred Hemoccult Exam: deferred - LYMPHATIC Lymphatic: no adenopathy - MUSCULOSKELETAL Back Exam: no CVA tenderness, no vertebral tenderness Extremity: normal range of motion, non-tender, normal gait, normal inspection - SKIN Integumentary: normal color, normal turgor, warm/dry - NEUROLOGIC Neurologic: grossly normal - PSYCHIATRIC Psych/Mental Status: normal mood/affect, normal thought content, normal thought process, oriented x 3 Progress - PLAN OF CARE/RESULTS Progress/Plan/Lab Results: Vital Signs - 8 hr 06/25/19 11:35 Temperature 99.0 F Pulse Rate 105 H Respiratory Rate 18 Blood Pressure 141/105 O2 Sat by Pulse Oximetry 100 Orders Category Date Time Status flat [ABDOMEN FLAT/UPRIGHT] [RAD] Stat Exams 06/25/19 11:45 Ordered CBC WITH DIFF [HEME] Stat Lab 06/25/19 11:45 Uncollected COMPREHENSIVE METABOLIC PANEL [CHEM] Stat Lab 06/25/19 11:45 Uncollected PROTIME WITH INR [COAG] Stat Lab 06/25/19 11:45 Uncollected PTT [COAG] Stat Lab 06/25/19 11:45 Uncollected Promethazine [Phenergan] Med 06/25/19 11:44 Discontinued 25 mg IM NOW ONE Result Diagrams: 06/25/19 12:15 06/25/19 12:15 - REASSESSMENT Reassessment #1 Time Reassessed: 13:12 Status: improving (pt still has some nausea but vomiting has resolved. pt is resting in the bed) Reassessment #2 Time Reassessed: 14:57 Status: unchanged (patient still having nausea and vomiting) - XRAY 1 XRAY: Bilateral XRAY Study: Abdomen Impression: See EMR Report (COMMENT: There is gas and stool in the ascending colon. There is a paucity of bowel gas elsewhere in the stomach is not diste nded. There is no evidence organomegaly or mass. There are no previous plain radiographs available for comparison. IMPRESSION: Constipation which appears to be localized to the ascending colon. Electronically signed by Ayaz Ponce 06/25/2019 12:35 PM 06/25/19 1235) - CONSULTS/PCP/HOSPITALIST Notification #1 *Consult/PCP/Hospitalist*: JONES Sanchez for Dr. Dasilva Time Discussed: 15:04 Consult Disposition: Admit Departure - Departure Date of Disposition Decision: 06/25/19 Time of Disposition Decision: 15:04 DIAGNOSIS: Intractable nausea and vomiting, Cannabinoid hyperemesis syndrome Leukocytosis Qualifiers: Leukocytosis type: unspecified Qualified Code(s): D72.829 - Elevated white blood cell count, unspecified Disposition: ADMITTED INPATIENT 09 Certified Medical Emergency: Emergent Condition: Poor Referrals and Follow-Ups: Kym Aguilera [Primary Care Provider] - - Critical Care Note This patient required my direct & personal management of CC.: No Attestation - Physician/ HELADIO Attestation Patient care was provided by Advanced Practice Provider:: Yes Advanced Practice Provider:: Elizabet Hay Advanced Practice Provider documentation review:: The Mid-level provider documentation, treatment plan and medical decision making was reviewed by the physician who agrees with all treatment and medical decision making by the MLP. The physician spent face to face time with patient:: No Advanced Practice Provider documentation review:: Supervising physician onsite and consulted in the evaluation and care of this patient. The physician did not have a face to face encounter with the patient. This chart was documented by the indicated scribe, (Robina Gotti Scribe) and accurately reflects the services I performed and decisions made by me, Elizabet Hay CRNP, as attested by the provider's signature.
--- NOTE | 2019-06-25 16:06 | HISTORY AND PHYSICAL ---
PRIMARY CARE PHYSICIAN: Kym Aguilera. CHIEF COMPLAINT: Nausea, vomiting that began last night and progressively worsened. HISTORY OF PRESENTING ILLNESS: This is a 33-year-old female who presents to [facility] after she began having nausea and vomiting that began last night and progressively worsened. States that she was in the hospital on 06/16/2019 with the same symptoms, had been admitted then, given IV fluids and her symptoms improved and she was discharged home within 24 hours of her admission at that time, but returns now with the same issues, but now admits to smoking marijuana during her previous admission and this one. States that she has used marijuana to help with her nausea and vomiting and did not realize that it could be hurting her. Her laboratory data did show urine drug screen with presumptive positive cannabinoids. She also had a white blood cell count of 15.94, that appears to be reactive. No other signs of infection. Urinalysis was negative. We did do an abdomen x-ray that showed constipation which appeared to be localized in the ascending colon, so she will be admitted for observation for further evaluation and treatment. PAST MEDICAL HISTORY: Recurrent nausea, vomiting, and hypothyroidism, anxiety. PAST SURGICAL HISTORY: Cholecystectomy and a . FAMILY HISTORY: Reviewed and noncontributory. SOCIAL HISTORY: She currently lives alone, is a former smoker of cigarettes. Denied any alcohol use and does use marijuana daily. ALLERGIES: Metaxalone, metoclopramide and prednisone. HOME MEDICATIONS: A current list will need to be obtained, reconciled, reviewed and restarted as appropriate. We will place an order for nursing to update and confirm home medications. LABORATORY DATA: Showed a white blood cell count of 15.94, hemoglobin 15.7, hematocrit 46.5, platelets 385,000. PT and INR of 12.5 and 0.93. Sodium 137, potassium 3.9, chloride 98, CO2 23, BUN of 5, creatinine 0.7, glucose 147, magnesium 1.7. Amylase 53, lipase 20. Urinalysis was negative except for 1+ bacteria. Urine drug screen was presumptive positive for benzodiazepines and cannabinoids. Abdomen x-ray showed constipation which appeared to be localized to the ascending colon. REVIEW OF SYSTEMS: She denied any fever, chills, blurred vision, dizziness, chest pain, coughing, shortness of breath. She denied any abdominal pain. Is positive for nausea and vomiting with multiple episodes since last night. Positive for constipation. Denied any diarrhea or burning or hurting with urination. PHYSICAL EXAMINATION: On arrival she had a temp 99 degrees, pulse 105, respirations 18, blood pressure 141/105, saturating 100% on room air. GENERAL: This is a 33-year-old female who is lying in the bed and answers questions appropriately. HEENT: Normocephalic, atraumatic. Normal ENT inspection. Oropharynx and nares are clear. EYES: Pupils are equal, round, and reactive to light and accommodation. Extraocular movements are intact. NECK: Normal inspection. Normal range of motion. LUNGS: Clear to auscultation bilaterally with equal lung expansion and chest wall movement. HEART: Regular rate and rhythm. No murmurs, rubs, or gallops. ABDOMEN: Soft, nontender, nondistended. Bowel sounds are present x4 quadrants. MUSCULOSKELETAL: She had 5/5 strength x4 extremities. NEUROLOGICAL: The cranial nerves 2-12 are grossly intact. ASSESSMENT: 1. Intractable nausea, vomiting. 2. Cannabinoid hyperemesis syndrome. 3. Hypothyroidism. 4. Leukocytosis most likely reactive. PLAN: She will be admitted to the medical unit, placed on telemetry, clear liquid diet. Normal saline at 125 mL an hour. We will do a Dulcolax suppository 1 per rectum x1 now. Phenergan 25 mg IV q.4 hours p.r.n. Recheck a CBC BMP in the a.m. Discussed the need for cessation of marijuana use and patient verbalized understanding. Further orders after seen by attending. Dictated by JONES Sanchez for Dominguez Dasilva MD cc: JONES Sanchez MD I agree with most components of history, physical, assessment and plan. A separate addendum has been dictated. [facility]
[2019-06-25] MEDS ORDERED: TYLENOL PO PRN (17:06)
[2019-06-25] MEDS ORDERED: NS 1,000 ML IV SCH (17:06)
[2019-06-25] MEDS ORDERED: DULCOLAX PR ONE (17:06)
[2019-06-25] MEDS: PHENERGAN IV PRN (17:35)
[2019-06-25] MEDS: SODIUM CHLORIDE 0.9% INJ PRN (17:35)
--- NOTE | 2019-06-25 18:38 | HISTORY AND PHYSICAL ---
ADDENDUM TO HISTORY AND PHYSICAL DICTATED BY THE NURSE PRACTITIONER: HISTORY OF PRESENT ILLNESS: I agree with most components of history, physical, assessment, and plan. In brief, Miss Garcia is a 33-year-old lady with past medical history of recurrent nausea and vomiting who comes in with another episode of recurrent nausea and vomiting which has been ongoing since last 4 days. Apparently, the patient was admitted to [facility] in early part of June for recurrent nausea and vomiting and was discharged on 06/19/2019. However, she states she started having nausea and vomiting again and decided to come to this hospital. Currently, she states her last vomiting episode was in the emergency room, and usually stress is a trigger. PHYSICAL EXAMINATION: VITAL SIGNS: Temperature 98.8 degrees, pulse 99, respiratory rate 16, blood pressure 130/84, saturating 100% on room air. GENERAL: Not in acute distress. HEENT: Oral cavity is moist. PULMONARY: Air entry bilaterally equal. No wheeze, rhonchi, or crackles. CARDIAC: S1, S2 normal. No murmur or gallop. ABDOMEN: Soft and nontender. EXTREMITIES: No lower extremity edema. NEUROLOGIC: She is alert and oriented x3. LABORATORIES: WBC of 15,000 likely stress-induced leukocytosis, hemoglobin 15.7, platelet 385,000. INR 0.9. BUN 5, creatinine 0.7. She also has proteinuria and ketones. Urine toxicology positive for benzodiazepines, and she claims to be using as-needed Xanax for anxiety and cannabis. Microbiology: No data. IMAGING: Abdomen x-ray had constipation localized to the ascending colon. ASSESSMENT AND PLAN: 1. Recurrent intractable nausea and vomiting in the setting of anxiety with use of cannabis. 2. History of hypothyroidism. 3. Reactive leukocytosis. PLAN: I will resuscitate the patient with intravenous fluids. We will give her intravenous Phenergan as needed and follow up with CBC and BMP tomorrow. Continue clear liquid diet. Plan of care discussed with her. Her questions have been answered. She denies history or clinical symptoms suggestive of systemic mastocytosis, carcinoid syndrome, pheochromocytoma or hereditary angioedema involving GI system. cc: Dominguez Dasilva MD MTDD
[2019-06-26] MEDS: SODIUM CHLORIDE 0.9% INJ PRN ×6 (02:35→20:27)
[2019-06-26] MEDS: PHENERGAN IV PRN ×5 (02:35→20:26)
[2019-06-26 06:31] LABS: BASO# 0.03 X1000 (0.0-0.2); BASO% 0.3 % (0.0-0.8); EOS# 0.01 X1000 (0.0-0.7); EOS% 0.1 % (0.0-10.0); HEMATOCRIT 44.3 % (37.0-47.0); HEMOGLOBIN 14.5 g/dL (12.0-16.0); IMM GRAN# 0.02 X1000 (0.0-0.04); IMM GRAN% 0.2 % (0.0-0.5); LYMPH# 1.69 X1000 (1.2-3.4); LYMPH% 14.6 % (20.5-51.1); MCH 28.8 PG (27-31); MCHC 32.7 g/dL (33-37); MCV 88.1 FL (81-99); MONO% 4.3 % (1.7-9.3); MPV 9.9 FL (7.4-10.4); NEUT% 80.5 % (42.2-75.2); PLT 398 X1000 (130-400); RBC 5.03 XMIL (4.2-5.4); RDW 14.6 % (11.5-14.5); WBC 11.55 X1000 (4.8-10.8)
[2019-06-26 06:48] LABS: AGAP 15; BUN 7 mg/dL (8-22); CALCIUM 9.2 mg/dL (8.8-10.2); CHLORIDE 101 mmol/L (98-107); COSMO 277; CREATININE 0.7 mg/dL (0.5-0.9); ESTIMATED GFR > 60; GLUCOSE 127 mg/dL (70-104); POTASSIUM 3.8 mmol/L (3.5-5.1); SODIUM 139 mmol/L (136-145); TCO2 23 mmol/L (25-35)
[2019-06-26] MEDS ORDERED: XANAX PO PRN (13:55)
--- NOTE | 2019-06-26 14:15 | PROGRESS NOTE ---
DATE: 06/26/2019 INTERVAL HISTORY: No acute events overnight. SUBJECTIVE: Ms Garcia she started throwing up back in at nighttime and had to receive Phenergan. However, she is feeling slightly better in the morning time. She states she has been following up with her regular physician and her regular physician aware about her cyclic vomiting syndrome. VITAL SIGNS: Temperature 98.6 degrees, pulse 112, respiratory 20, blood pressure 100/47, she is saturating 96% on room air. PHYSICAL EXAMINATION: General: Not in acute distress. HEENT: She has pharyngeal congestion. Oral cavity is moist. Lungs: Air bilateral, equal. No wheeze or rhonchi. Heart: S1, S2 normal. No murmur or gallop. Abdomen: Soft, nontender. Extremity: Edema. Neurologic: She is alert and orient x3. LABORATORY DATA: Suggestive of improvement in leukocytosis from 115 to [address], hemoglobin 14.5 platelet 398,000. I was told her urine test was negative, though I do not have the result. Potassium is 3.8, BUN 7, creatinine 0.7. MICROBIOLOGY: No data. IMAGING: No new data. ASSESSMENT AND PLAN: 1. Recurrent intractable nausea and vomiting in the setting of anxiety as well as cyclic vomiting syndrome. She has had 2 of her urine test positive for cannabis in the last 12 months. Otherwise, most of the urine drug screen have been negative. This time around, she was using prescribed Xanax for which her benzodiazepine screen came positive. I will continue her on Phenergan as needed. If she is not able to tolerate clear liquid diet, I will resume her on intravenous fluids. 2. History of hypothyroidism. I will resume her levothyroxine. 3. History of anxiety. I will resume her Xanax as needed. DISPOSITION: Monitor patient inside the hospital. cc: Dominguez Dasilva MD
[2019-06-26] MEDS ORDERED: LR 1,000 ML IV SCH (16:00)
[2019-06-27] MEDS: PHENERGAN IV PRN ×6 (00:18→20:51)
[2019-06-27] MEDS: SODIUM CHLORIDE 0.9% INJ PRN ×6 (00:18→20:52)
[2019-06-27] MEDS: SYNTHROID PO SCH ×2 (05:51→06:06)
[2019-06-27] MEDS ORDERED: COMPAZINE IV ONE (15:25)
[2019-06-27] MEDS: LR 1,000 ML IV SCH (15:51)
[2019-06-27] MEDS: ZOFRAN ODT PO SCH ×3 (16:29→21:14)
--- NOTE | 2019-06-27 16:37 | PROGRESS NOTE ---
DATE: 06/27/2019 INTERVAL HISTORY: Ms. Garcia states that she was feeling better during remaining of the day and was wondering if she could get discharged. We discussed that if she does not have any more vomiting during later part of the day, I would consider discharging her. She currently denies any chest pain or shortness of breath. VITALS: Temperature 98.2 degrees, pulse 84, respiratory rate 21, blood pressure 133/100. She is saturating 98% room air. PHYSICAL EXAMINATION: General: Not in acute distress. Oral cavity: Moist. Lungs: Air entry bilaterally equal. No wheeze, rhonchi, or crackles. Cardiovascular: S1, S2 normal. No murmur or gallop. Abdomen: Soft, nontender. Extremity: No lower extremity edema. Neurologic: She is alert and oriented x3. No new labs today. ASSESSMENT AND PLAN: 1. Recurrent intractable nausea and vomiting in the setting of anxiety as well as cyclical vomiting syndrome. She has been intermittently using cannabis to help with her vomiting. However, she attests to not being a regular cannabis user. She also sometimes uses prescribed Xanax for anxiety, which is likely responsible for her urine toxicology positivity. Continue Phenergan as needed. I will give her one time IV Compazine and start her on scheduled Zofran. I will follow up with gastric emptying study tomorrow and start her on continuous IV fluids. Continue Xanax as needed for anxiety. 2. History of hypothyroidism. Continue home levothyroxine. 3. Disposition. My initial plan was to discharge the patient later today if she felt okay since she has small children at home. However, she started vomiting again, so I decided to keep her as she may need further IV fluids. Plan of care discussed with her. Her questions have been answered. cc: Dominguez Dasilva MD
[2019-06-28] MEDS: SODIUM CHLORIDE 0.9% INJ PRN ×2 (05:37→05:38)
[2019-06-28] MEDS: PHENERGAN IV PRN ×2 (05:37→10:54)
[2019-06-28] MEDS: LR 1,000 ML IV SCH ×2 (05:37→20:12)
[2019-06-28] MEDS: SYNTHROID PO SCH ×2 (05:37→06:04)
[2019-06-28] MEDS ORDERED: REGLAN IV SCH (07:30)
[2019-06-28 07:47] LABS: AGAP 15; BUN 7 mg/dL (8-22); CALCIUM 9.1 mg/dL (8.8-10.2); CHLORIDE 100 mmol/L (98-107); COSMO 271; CREATININE 0.8 mg/dL (0.5-0.9); ESTIMATED GFR > 60; GLUCOSE 91 mg/dL (70-104); MAGNESIUM 1.8 mg/dL (1.5-2.7); POTASSIUM 3.8 mmol/L (3.5-5.1); SODIUM 137 mmol/L (136-145); TCO2 22 mmol/L (25-35)
--- NOTE | 2019-06-28 09:18 | EKG Report ---
Test Performed on : 06/28/2019 08:20:55 AM Test Reason : Follow up QTc Blood Pressure : / mmHG Vent. Rate : 087 BPM Atrial Rate : 087 BPM P-R Int : 114 ms QRS Dur : 086 ms QT Int : 380 ms P-R-T Axes : 052 051 027 degrees QTc Int : 457 ms Normal sinus rhythm. with sinus arrhythmia. Normal ECG No previous ECGs available Confirmed by Greg ALEX, Nghia Gonsales ([id number]) on 06/28/2019 4:48:37 PM
[2019-06-28] MEDS ORDERED: ZOFRAN IV PRN (10:58)
[2019-06-28] MEDS ORDERED: SODIUM CHLORIDE 0.9% INJ SCH (11:00)
[2019-06-28] MEDS: MIRALAX PO SCH ×2 (13:04→20:13)
[2019-06-28] MEDS: PROTONIX IV SCH ×2 (13:04→20:15)
[2019-06-28] MEDS: DULCOLAX PR SCH ×2 (13:05→20:13)
--- NOTE | 2019-06-28 13:31 | GASTROENTEROLOGY CONSULTATION ---
DATE: 06/28/2019 REASON FOR CONSULT: Intractable nausea and vomiting. HISTORY OF PRESENT ILLNESS: Ms. Garcia is a 33-year-old female who complained that she has been throwing up since last Friday up to Friday. She went to [facility] on last Friday and was admitted and got discharged on Friday. The patient mentions feeling better at that time, but she started having nausea and vomiting again on , and came to [facility] on Friday with complaints of intractable nausea and vomiting. The patient did mention that her emesis looked like a bile color, and on an off she had some dark coffee-grounds emesis. The patient complained of right abdominal pain that she rated as 6/10, described as dull pain. She denied having any flu-like symptoms. She mentioned that she started using marijuana to help ease out with her nausea and vomiting and did not realize that it would cause her more harm. The patient does have a 4-month-old baby at home. Her abdominal x-ray on admission showed that she had constipation localized to the ascending colon. The patient's toxicology report has shown presumptive positive for benzodiazepines and presumptive positive for cannabinoids. PAST MEDICAL HISTORY: Hypothyroidism, anxiety, recurrent nausea and vomiting. PAST SURGICAL HISTORY: Cholecystectomy, 2 sections, and wisdom tooth taken out. FAMILY HISTORY: Her mom has Crohn disease. SOCIAL HISTORY: The patient is , has got 4 kids. She is a former smoker. Denies any alcohol, but does consume marijuana on a daily basis. ALLERGIES: The patient is allergic to metaxalone, metoclopramide, and prednisone. HOME MEDICATIONS: Xanax 1 mg p.o. daily as needed and Synthroid 88 mcg p.o. daily. REVIEW OF SYSTEMS: As per HPI. Otherwise, 12-point review of system is negative. PHYSICAL EXAMINATION: Vital Signs: Temperature 98.4 degrees, pulse 93, respirations 20, blood pressure 133/78, oxygen saturation 99% on room air. The patient's weight is 162 pounds. BMI is 30.6 kg per metered squared. General: She is alert, oriented x3. No acute distress. Answering questions appropriately. HEENT: Pale conjunctivae. No icterus. PERRL. Neck: Supple. Lungs: Clear to auscultation. Cardiovascular: The patient is tachycardic. Abdomen: Soft, distended, tender in the right quadrant and epigastric area. Active bowel sounds heard in all 4 quadrants. Extremities: No clubbing. No cyanosis. No edema. Pedal pulses 2+ present bilaterally. Neurologic: Alert and oriented x3. Nonfocal. Cranial nerves 2 through 12 grossly intact. LABORATORY DATA: WBCs 11.55, RBC 5.03, hemoglobin 14.5, hematocrit 44.3, platelet count is 398,000. Sodium 137, potassium 3.8, chloride 100, carbon 22, anion gap 15, BUN 7, creatinine is 0.8, glucose 91, calcium 9.1, magnesium 1.8. Urinalysis has shown protein of 100, trace of ketones. Toxicology report has been positive for benzodiazepines and cannabinoids. IMAGING STUDIES: Abdominal x-ray had shown constipation which appears to be localized to the ascending colon. IMPRESSION AND PLAN: 1. Recurrent Nausea and vomiting-having 3 episodes per year for many years requiring hospitalization. 2. Hematemesis. 3. Fecal impaction- AXR showing stool in the Ascending colon. 4. Constipation 5. Marijuana abuse-? Cannabis Hyperemesis Syndrome PLAN: Ms. Garcia is a 33-year-old female with a history of hypothyroidism. GI has been consulted for her nausea and vomiting. We plan to do an EGD tomorrow to find out the cause of her nausea and vomiting. The patient's abdominal x-ray showed that she had constipation. We have started her on Dulcolax 10 mg MA BID and MiraLAX 17 grams p.o. BID. Counseled about quitting Marijuana use. The patient is on PPI 40 mg twice a day, and she is on antiemetic, Zofran 4 mg every 6 hours as needed. The patient is receiving IV fluid, lactated Ringer's 1000 mL at 70 mL per hour. We have started her on clear liquid diet. She will be n.p.o. after midnight for a procedure for tomorrow. We have discussed the risks, benefits, and alternatives of the procedure to the patient. Further plan of care will be based on the EGD findings. This plan was discussed with Dr. Austin. Thank you for your consultation. Please call us for any further questions. Dictated by JONES Hancock for Marino Austin MD cc: Marino Austin MD I have seen and examined the patient myself and I agree with the above plan of care. Please call us with any questions or concerns. OPAL
[2019-06-28] MEDS: COMPAZINE IV PRN ×2 (15:32→22:35)
--- NOTE | 2019-06-28 16:13 | PROGRESS NOTE ---
DATE: 06/28/2019 INTERVAL HISTORY: No acute events overnight. SUBJECTIVE: Ms Garcia continues to have nausea and vomiting. VITALS: Temperature 98.4 degrees, pulse 93, respiratory 20, blood pressure 133/78, she is saturating 99% room air. PHYSICAL EXAMINATION: Ms. Garcia is not in acute distress . Oral cavity is moist. Air entry bilateral equal, no wheeze, rhonchi, crackles. S1, S2 normal. No murmur or gallop.Abdomen: Soft, nontender. No lower extremity edema. She is alert, oriented x3. She has not been able to eat anything. LABS: Suggestive of BUN 7, creatinine 0.8, magnesium is 1.8. ASSESSMENT AND PLAN: 1. Recurrent intractable nausea and vomiting with cyclic vomiting syndrome. Often times, provoked by anxiety. Patient did not tolerate gastric emptying study and had started vomiting and so it was aborted. She experienced malaise, tingling to IV Reglan. IV Zofran did not help much. Start intravenous Compazine. Continue intravenous Protonix and bowel regimen. Appreciate GI recs for EGD to evaluate for peptic ulcer disease, pyloric stenosis vs other causes. 2. Anxiety: Continue Xanax as needed for anxiety which is her home medication. 3. History of hypothyroidism. Continue home levothyroxine . 4. Marijuana use: Patient admits to using it infrequently to help with her GI symptoms. I counselled her about Cannabis hyperemesis syndrome. However, her vomiting has been present before she started using Marijuana. She also had history of hyperemesis gravidarum. DISPOSITION: Pending EGD tomorrow. Plan of care discussed with her. I will continue her intravenous fluids. Patient's questions have been answered. cc: Dominguez Dasilva MD [facility]
[2019-06-29] MEDS: SYNTHROID PO SCH ×2 (06:20→09:28)
[2019-06-29] MEDS ORDERED: DIPRIVAN 1% ONE (08:20)
[2019-06-29] MEDS ORDERED: XYLOCAINE-MPF 2% ONE (08:20)
[2019-06-29] MEDS ORDERED: FENTANYL ONE (08:21)
--- NOTE | 2019-06-29 08:57 | ENDOSCOPY OPERATIVE NOTE ---
[facility] ENDOSCOPY OPERATIVE NOTE , EGD PROCEDURE REPORT EXAM DATE: 06/29/2019 PATIENT NAME: Nichelle Garcia MR#: [id number] BIRTHDATE: 1985 ATTENDING: Keith Banks MD STATUS: inpatient FLIGHT AGENT: INDICATIONS: The patient is a 33 yr old female here for an EGD due to nausea and vomiting. PROCEDURE PERFORMED: EGD w/ biopsy MEDICATIONS: Per Anesthesia ESTIMATED BLOOD LOSS: None CONSENT: The patient understands the risks and benefits of the procedure and understands that these r isks include, but are not limited to: sedation, allergic reaction, infection, perforation and/or bleeding. Alternative means of evaluation and treatment include, among others: physical exam, x-rays, and/or surgical intervention. The patient elects to proceed with this endoscopic procedure. DESCRIPTION OF PROCEDURE: During pre-op preparation period all mechanical and medical equipment was c hecked for proper function. Hand hygiene and appropriate measures for infection prevention was taken. After the risks, benefits and alternatives of the procedure were thoroughly explained, Informed consent was verified, confirmed and timeout was successfully executed by the treatment team. The patient was anesthetized with topical anesthesia and the [id number] ([id number]) endoscope was introduced through the mouth and advanced to the second portion of the duoden um. Retroflexion was performed in the stomach and revealed no abnormalities. The gastroscope was then slowly withdraw n and removed. The patient's toleration of the procedure was excellent. ESOPHAGUS: Mild reflux esophagitis was found in the lower third of the esophagus. A biopsy was perfo rmed using cold forceps. Sample sent for histology. The z-line was noted at 35cm from the incisors. The z-line ap peared irregular. STOMACH: A few benign, fundic gland (3-5mm) polyps were found in the gastric body. Mild gastritis ( inflammation) was found in the gastric antrum. A biopsy was performed using cold forceps. Sample sent for histology. DUODENUM: The duodenum was normal. ADVERSE EVENTS: There were no complications. IMPRESSIONS: ESOPHAGUS: Mild reflux esophagitis was found in the lower third of the esophagus. A biopsy was perfo rmed using cold forceps. Sample sent for histology. The z-line was noted at 35cm from the incisors. The z-line ap peared irregular. STOMACH: A few benign, fundic gland (3-5mm) polyps were found in the gastric body. Mild gastritis ( inflammation) was found in the gastric antrum. A biopsy was performed using cold forceps. Sample sent for histology. DUODENUM: The duodenum was normal. RECOMMENDATIONS: 1. Await biopsy results 2. Continue PPI PO twice daily for 3 months, then once daily thereafter 3. Continue antiemetics 4. Avoid NSAIDs 5. Advance diet as tolerated 6. Recommend cessation of marijuana as I suspect she has cannabinoid hyperemesis syndrome. 7. Will follow with you. Please call with questions. REPEAT EXAM: Keith Banks MD eSigned: Keith Banks MD 06/29/2019 8:56 AM CC: CPT CODES: 95474 Upper gastrointestinal endoscopy including esophagus, stomach, and either the du odenum and/or jejunum as appropriate; with biopsy, single or multiple ICD CODES: 787.02 Nausea 787.03 Vomiting,unspecified The ICD and CPT codes recommended by this software are interpretations from the data that the [facility] staff has captured with the software. The verification of the translation of this report to the ICD and CPT co lakeisha and modifiers is the sole responsibility of the health care institution and practicing physician where this report was generated. [employer] will not be held responsible for the validity of the ICD and CPT codes i ncluded on this report. [employer] assumes no liability for data contained or not contained herein. CPT is a registered tra [employer] of the [employer]. PATIENT NAME: Nichelle Garcia MR#: [id number]
[2019-06-29] MEDS: MIRALAX PO SCH (09:27)
[2019-06-29] MEDS ORDERED: PROTONIX [NONFORMULARY] PO SCH (10:00)
[2019-06-29] MEDS: DULCOLAX PR SCH (11:26)
[2019-06-29 12:33] VITALS: BP 114/89
--- NOTE | 2019-06-29 16:28 | DISCHARGE SUMMARY ---
ADMISSION DATE: 06/25/2019 DISCHARGE DATE: 06/29/2019 DISPOSITION: Home. FOLLOWUP: 1. Ms. Kym Aguilera. 2. Dr. Banks. CONSULTATION: GI was consulted, patient was seen by Dr. Austin followed up by Dr. Banks. INVASIVE PROCEDURES: EGD was done by Dr. Banks. Findings include a mild reflex esophagitis found in the lower third of esophagus, there was also a few benign fundic glands, mild gastritis. Recommendation was to continue PPI twice for 3 months. ADMISSION DIAGNOSIS: 1. Intractable nausea, vomiting. 2. Cannabinoid hyperemesis syndrome. 3. Hypothyroidism. 4. Leukocytosis. DIAGNOSIS AT THE TIME OF DISCHARGE: 1. Cannabinoids induced hyperemesis syndrome. 2. Gastritis. 3. Hypothyroidism. 4. Reactive leukocytosis. 5. Mild clinical volume depletion on admission resolved. DISCHARGE MEDICATIONS: 1. Xanax 1 mg p.o. daily p.r.n. 2. Synthroid 88 mcg p.o. daily. 3. Pantoprazole 40 mg b.i.d. PRESENTING COMPLAINT: Nausea, vomiting. HISTORY OF PRESENTING COMPLAINT: Ms. Garcia is a 33-year-old lady who has history of hypothyroidism presented to emergency room because of intractable nausea and vomiting. Patient was found to be remarkably volume depleted. She admits using marijuana which she thought was good for her stomach. Upon presenting she was evaluated. White cell count was elevated but we thought that is related to a reactive leukocytosis. She was admitted for further medical care. HOSPITAL COURSE: Ms Garcia was kept NPO initially, was fluid resuscitated and GI was consulted. She was seen by Dr. Austin initially and the plan was made for EGD which was successfully done by Dr. Banks, his partner, findings were noted. After EGD Ms. Garcia refers to be doing well. She has been tolerating her diet, we think she is fairly stable to be discharged. She has been advised on Cannibis side effects and cessation. She voiced understanding. All the discharge instructions discussed. All her questions and concerns were addressed. TIME SPENT: 34 minutes. cc: Dez Branch MD [facility]
== END 2019-06-29 13:47 | disposition home or self-care (01) | DRG 395 ==
LOC: ED 11:31 → SUATTDRO 15:19 → 3N 15:19
PROVIDERS: ATTEND Internal Medicine

== ENCOUNTER 2019-07-04 08:57 | Inpatient (IN) ==
[2019-07-04] MEDS ORDERED: ZOFRAN IV ONE (09:17)
[2019-07-04] MEDS ORDERED: NS 1,000 ML IV ONE (09:17)
[2019-07-04 09:53] LABS: URINE SOURCE CLEAN CATCH
[2019-07-04 10:05] LABS: BASO# 0.04 X1000 (0.0-0.2); BASO% 0.3 % (0.0-0.8); HEMATOCRIT 41.2 % (37.0-47.0); IMM GRAN# 0.03 X1000 (0.0-0.04); IMM GRAN% 0.3 % (0.0-0.5); LYMPH# 1.31 X1000 (1.2-3.4); LYMPH% 11.3 % (20.5-51.1); MCH 28.7 PG (27-31); MCV 84.6 FL (81-99); MONO# 0.49 X1000 (0.11-0.59); MONO% 4.2 % (1.7-9.3); NEUT# 9.72 X1000 (1.4-6.5); NEUT% 83.9 % (42.2-75.2); PLT 514 X1000 (130-400); RBC 4.87 XMIL (4.2-5.4); RDW 13.6 % (11.5-14.5); WBC 11.59 X1000 (4.8-10.8)
[2019-07-04] MEDS ORDERED: COMPAZINE IV ONE ×3 (10:08→10:34)
[2019-07-04] MEDS ORDERED: BENADRYL IV ONE (10:08)
[2019-07-04 10:16] LABS: AGAP 17; ALB/GLOB RATIO 1.3; ALBUMIN 4.5 g/dL (3.5-5.0); ALKALINE PHOSPHATASE 65 U/L (32-104); AMYLASE 39 U/L (20-200); BUN 4 mg/dL (8-22); CALCIUM 10.1 mg/dL (8.8-10.2); CHLORIDE 96 mmol/L (98-107); COSMO 271; CREATININE 0.7 mg/dL (0.5-0.9); ESTIMATED GFR > 60; GLUCOSE 166 mg/dL (70-104); GOT 18 U/L (10-30); GPT 16 U/L (10-36); LIPASE 16 U/L (13-60); POTASSIUM 3.6 mmol/L (3.5-5.1); SODIUM 135 mmol/L (136-145); TCO2 22 mmol/L (25-35); TOTAL BILIRUBIN 1.34 mg/dL (0.20-1.00); TOTAL PROTEIN 8.1 g/dL (6.3-8.3)
[2019-07-04 10:20] LABS: UR AMPHETAMINES QUAL NONE DETECTED (NONE DETECT); UR BARBITUATES QUAL NONE DETECTED (NONE DETECT); UR BENZODIAZEPIN QUAL PRESUMPTIVE POSITIVE (NONE DETECT); UR CANNABINOIDS QUAL PRESUMPTIVE POSITIVE (NONE DETECT); UR COCAINE QUAL NONE DETECTED (NONE DETECT); UR METHADONE QUAL NONE DETECTED (NONE DETECT); UR OPIATES QUAL NONE DETECTED (NONE DETECT); UR OXYCODONE QUAL NONE DETECTED (NONE DETECT); UR PCP QUAL NONE DETECTED (NONE DETECT)
[2019-07-04 10:21] LABS: BILIRUBIN URINE NEGATIVE (NEGATIVE); BLOOD URINE NEGATIVE (NEGATIVE); COLOR YELLOW; GLUCOSE URINE NEGATIVE (NEGATIVE); KETONE URINE 100 mg/dL (NEGATIVE); LEUKOCYTES URINE NEGATIVE (NEGATIVE); NITRITE URINE NEGATIVE (NEGATIVE); PROTEIN URINE 200 mg/dL (NEGATIVE); SP GRAVITY URINE 1.028; TURBIDITY URINE HAZY (CLEAR); UR EPITHELIAL CELLS >10 /HPF (<10); URINE BACTERIA 1+ /HPF; URINE RBC <10 /HPF (<10); URINE WBC <10 /HPF (<10); UROBILINOGEN URINE NORMAL (NORMAL)
[2019-07-04 10:30] LABS: URINE YEAST NONE SEEN
[2019-07-04 10:31] LABS: URINE CASTS NONE SEEN; URINE CRYSTALS NONE SEEN; URINE SMALL ROUND CELLS NONE SEEN
--- NOTE | 2019-07-04 10:32 | PROVIDER DOCUMENTATION ---
HPI-Abdominal Pain/GI Problem - General Chief Complaint: Nausea/Vomiting Stated Complaint: VOMITING Time Seen by Provider: 07/04/19 09:51 Source: patient Allergies/Adverse Reactions: Patient Allergies Allergy/AdvReac Type Severity Reaction Status Date / Time metaxalone [From Skelaxin] AdvReac NAUSEA/VOMITING Verified 07/04/19 09:34 anxiety metoclopramide [From Reglan] AdvReac NAUSEA/VOMI Verified 07/04/19 09:34 TING prednisone AdvReac NAUSEA/VOMI Verified 07/04/19 09:34 TING Home Medications: Home Medication List Medication Instructions Recorded Confirmed Last Taken Type Alprazolam [Xanax] 1 mg PO DAILY PRN 06/25/19 06/25/19 06/24/19 History Levothyroxine [Synthroid] 88 microgm PO DAILY@0700 06/25/19 06/25/19 06/24/19 History Pantoprazole [Protonix 40 mg PO BID #60 tab 06/29/19 Unknown Rx [Nonformulary]] - History of Present Illness-ABD Nature of Presenting Problems: 33 yof with recent admissions for hyperemesis related to cannibus presents today for c/o worsening n/v that began last night that was unrelieved by home medications. During last admission she was seen by GI. She repors she has not smoked anymore since d/c home. She denies fever, sob, cp, diarrhea. She reports she "googled" it and think she needs haldol. Abdominal Pain Onset Location: reports: generalized abdomen (only after vomiting) Quality of Pain: reports: aching Severity in ED: reports: mild Onset/Duration: reports: last night Timing: reports: still present Activities at Onset: reports: other Exposure to sick contacts?: No Modifying Factors: improves with: nothing Associated Symptoms: reports: anxiety, nausea, vomiting, weakness. denies: fever/chills, shortness of breath Last BM: 24 hours ago Dark Stools Present?: reports: none noticed Rectal Bleeding: reports: none Rectal Pain: reports: none Emesis Description: reports: none Bruising or Bleeding Gums?: No Similar Symptoms Previously?: Yes Recently seen or treated by another doctor?: Yes (recent admission ) Review of Systems - Adult - REVIEW OF SYSTEMS - ADULT Constitutional: reports: no symptoms reported. denies: chills, fever Eyes: reports: no symptoms reported. denies: blurred vision, double vision, eye pain Ears, Nose, Mouth & Throat: reports: no symptoms reported. denies: sinus problem, mouth/dental pain Cardiovascular: reports: no symptoms reported. denies: chest pain, irregular heart rate, PND Respiratory: reports: no symptoms reported. denies: cough, shortness of breath, wheezing Gastrointestinal: reports: see HPI, nausea, vomiting Genitourinary: reports: no symptoms reported. denies: see HPI, dysuria, discharge, frequency, flank pain, frequent UTI's, hematuria, hesitency, incontinence, urinary retention, urgency, other Musculoskeletal: reports: no symptoms reported. denies: see HPI, bone pain, back pain, frequent leg cramps, joint pain, joint swelling, muscle aches, muscle weakness, neck pain, other Integumentary: reports: no symptoms reported. denies: see HPI, hives, hair lo ss, itching, mole changes, nail changes, rash, skin sores/ulcer, skin thickening, other Neurological: reports: no symptoms reported. denies: see HPI, ataxia, dizziness/vertigo, headache/migraines, loss of balance, numbness, paresthesia, seizure, slurred speech, syncope, tremors, other Psychiatric: reports: no symptoms reported. denies: see HPI, anxiety, anti- depressant use, alcohol/drug dependence, depression, emotional problems, insomnia, panic attacks, suicidal thoughts, other Endocrine: reports: no symptoms reported. denies: see HPI, change in skin pigment, excessive sweating, goiter, cold intolerance, heat intolerance, increased hunger, increased thirst, polyuria, other Hematologic/Lymphatic: reports: no symptoms reported. denies: see HPI, blood clots, easy bruising, low blood count, lymphedema, prolonged bleeding, swollen lymph nodes, transfusions, other Allergic/Immunologic: reports: no symptoms reported. denies: see HPI, allergic reactions, allergic rhinitis, asthma, eczema, food allergy, frequent infections, hay fever, hives, positive PPD, urticaria, other Past History - Adult - PAST MEDICAL HISTORY-ADULT Review of Records: reports: Nursing Assessment Review, Social history reviewed & non-contributory. Major Childhood Illnesses: reports: denies history Cardiovascular: reports: denies history Respiratory: reports: denies history Gastrointestinal: reports: denies history Obstetrical/Gynecological: reports: denies history Genitourinary: reports: denies history Musculoskeletal: reports: denies history Neurological: reports: denies history Psychiatric: reports: denies history Endocrine/Immune: reports: denies history Other Conditions: reports: denies history - PRIOR SURGERIES/PROCEDURES Surgical/Procedure History: reports: cholecystectomy, - IMMUNIZATION STATUS Childhood Immunizations: See Nurse Assessment Flu Vaccine: See Nurse Assessment - FAMILY HISTORY Family History: reviewed, not pertinent Physical Exam-General - PHYSICAL EXAM-ADULT Initial Vital Signs Reviewed: Yes - CONSTITUTIONAL General Appearance: alert, no apparent distress - EYES Eyes: PERRL/EOMI, pink conjunctivae - HEAD, EARS, NOSE, MOUTH & THROAT HENMT: normocephalic/atraumatic, moist mucous membranes, normal ENT inspection - NECK Neck: non-tender, full range of motion, supple - RESPIRATORY Respiratory: chest non-tender, lungs clear, normal breath sounds, no pleuratic chest pain, no respiratory distress, no accessory muscle use - CARDIOVASCULAR Cardiovascular: normal peripheral pulses, regular rate, rhythm, no edema, no gallop, no JVD, no murmur - GASTROINTESTINAL (ABDOMEN) Abdominal Exam: normal bowel sounds, non tender, soft, no organomegaly, no pulsatile mass - LYMPHATIC Lymphatic: no adenopathy - MUSCULOSKELETAL Back Exam: normal inspection, no CVA tenderness, no vertebral tenderness Extremity: normal range of motion, non-tender, normal gait, normal inspection, no pedal edema, no calf tenderness, normal capillary refill Peripheral Pulses: radial (R): 2+, radial (L): 2+ - SKIN Integumentary: normal color, normal turgor, warm/dry - NEUROLOGIC Neurologic: grossly normal - PSYCHIATRIC Psych/Mental Status: normal mood/affect, oriented x 3 Progress - PLAN OF CARE/RESULTS Progress/Plan/Lab Results: Vital Signs - 8 hr 07/04/19 09:08 Temperature 98.9 F Pulse Rate 100 H Respiratory Rate 19 Blood Pressure 103/67 O2 Sat by Pulse Oximetry 99 Bedside Urine ED: Urine Bedside Start: 07/04/19 09:49 Freq: Status: Active Protocol: Activity Type Activity Date Activity User E-Sign Co-Sign Detail Recorded Client Recorded Date Recorded By Document 07/04/19 09:49 ROBBY [id number] 07/04/19 09:49 SJONES 07/04/19 09:49 Point of Care [Bedside Point of Care] -Lot # [id number] - Results Negative -Control Line Visible? Yes Laboratory Results - last 24 hr 07/04/19 07/04/19 07/04/19 09:35 09:35 09:35 WBC 11.59 H RBC 4.87 Hgb 14.0 Hct 41.2 MCV 84.6 MCH 28.7 MCHC 34.0 RDW Std Deviation 13.6 Plt Count 514 H MPV 10.0 Immature Gran % (Auto) 0.3 Neut % (Auto) 83.9 H Lymph % (Auto) 11.3 L [place] % (Auto) 4.2 Eos % (Auto) 0.0 Baso % (Auto) 0.3 Immature Gran # (Auto) 0.03 Neut # (Auto) 9.72 H Lymph # (Auto) 1.31 [place] # (Auto) 0.49 Eos # (Auto) 0.00 Baso # (Auto) 0.04 Sodium 135 L Potassium 3.6 Chloride 96 L Carbon Dioxide 22 L Anion Gap 17 BUN 4 L Creatinine 0.7 Estimated GFR/1.73 m2 > 60 BUN/Creatinine Ratio 6 Glucose 166 H Calculated Osmolality 271 Calcium 10.1 Total Bilirubin 1.34 H AST 18 ALT 16 Alkaline Phosphatase 65 Total Protein 8.1 Albumin 4.5 Globulin 3.6 Albumin/Globulin Ratio 1.3 Amylase 39 Lipase 16 Urine Source Urine Color Urine Turbidity Urine pH Ur Specific [place] Urine Protein Ur Glucose (Stick) Ur Ketones (Stick) Urine Blood Urine Nitrite Urine Bilirubin Urobilinogen Dipstick Urine Leukocytes Urine WBC (Auto) Urine RBC (Auto) U Epithel Cells (Auto) Urine Bacteria (Auto) Urine Test NEGATIVE Urine Opiates Screen Ur Oxycodone Screen Ur Methadone, Qual Ur Barbiturates Screen Ur Phencyclidine Scrn Ur Amphetamines Screen U Benzodiazepines Scrn Urine Cocaine Screen U Cannabinoids Screen 07/04/19 07/04/19 09:35 09:35 WBC RBC Hgb Hct MCV MCH MCHC RDW Std Deviation Plt Count MPV Immature Gran % (Auto) Neut % (Auto) Lymph % (Auto) [place] % (Auto) Eos % (Auto) Baso % (Auto) Immature Gran # (Auto) Neut # (Auto) Lymph # (Auto) [place] # (Auto) Eos # (Auto) Baso # (Auto) Sodium Potassium Chloride Carbon Dioxide Anion Gap BUN Creatinine Estimated GFR/1.73 m2 BUN/Creatinine Ratio Glucose Calculated Osmolality Calcium Total Bilirubin AST ALT Alkaline Phosphatase Total Protein Albumin Globulin Albumin/Globulin Ratio Amylase Lipase Urine Source CLEAN CATCH Urine Color YELLOW Urine Turbidity HAZY Urine pH 9.0 Ur Specific [place] 1.028 Urine Protein 200 A Ur Glucose (Stick) NEGATIVE Ur Ketones (Stick) 100 A Urine Blood NEGATIVE Urine Nitrite NEGATIVE Urine Bilirubin NEGATIVE Urobilinogen Dipstick NORMAL Urine Leukocytes NEGATIVE Urine WBC (Auto) <10 Urine RBC (Auto) <10 U Epithel Cells (Auto) >10 A Urine Bacteria (Auto) 1+ Urine Test Urine Opiates Screen NONE DETECTED Ur Oxycodone Screen NONE DETECTED Ur Methadone, Qual NONE DETECTED Ur Barbiturates Screen NONE DETECTED Ur Phencyclidine Scrn NONE DETECTED Ur Amphetamines Screen NONE DETECTED U Benzodiazepines Scrn PRESUMPTIVE POSITIVE A Urine Cocaine Screen NONE DETECTED U Cannabinoids Screen PRESUMPTIVE POSITIVE A Orders Category Date Time Status Saline Loc DIRECTED Care 07/04/19 09:16 Active NPO Diet 07/04/19 09:16 Active AMYLASE [CHEM] Stat Lab 07/04/19 09:35 Completed CBC WITH ELECTRONIC DIFF [HEME] Stat Lab 07/04/19 09:35 Completed COMPREHENSIVE METABOLIC PANEL [CHEM] Stat Lab 07/04/19 09:35 Completed LIPASE [CHEM] Stat Lab 07/04/19 09:35 Completed TEST-URINE [PREG] Stat Lab 07/04/19 09:35 Completed URINALYSIS W/POSS RFLX CULT [URINALYSIS] Stat Lab 07/04/19 09:35 Results URINE DRUG SCREEN Stat Lab 07/04/19 09:35 Completed URINE MANUAL MICROSCOPIC [URINALYSIS] Stat Lab 07/04/19 09:35 Results 0.9% Sodium Chloride Inj [Ns] 1,000 ml Med 07/04/19 09:17 Active IV 99 mls/hr Diphenhydramine [Benadryl] Med 07/04/19 10:08 Discontinued 25 mg IV NOW ONE Ondansetron [Zofran] Med 07/04/19 09:17 Discontinued 4 mg IV NOW ONE Prochlorperazine [Compazine] Med 07/04/19 10:08 Discontinued 10 mg IV NOW ONE Result Diagrams: 07/04/19 09:35 07/04/19 09:35 - REASSESSMENT Reassessment #1 Time Reassessed: 11:09 Status: unchanged (pt reports she is still nauseated despite compazine/benadryl. She has stopped vomiting.) - CONSULTS/PCP/HOSPITALIST Notification #1 *Consult/PCP/Hospitalist*: JONES Rodrigues Time Discussed: 12:01 Consult Disposition: Will see in ED, Admit Departure - Departure Date of Disposition Decision: 07/04/19 Time of Disposition Decision: 12:01 DIAGNOSIS: Intractable nausea and vomiting, Leukocytosis Disposition: ADMITTED INPATIENT 09 Certified Medical Emergency: Emergent Condition: Stable Referrals and Follow-Ups: Kym Aguilera [Primary Care Provider] - - Critical Care Note This patient required my direct & personal management of CC.: No Attestation - Physician/ HELADIO Attestation Patient care was provided by Advanced Practice Provider:: Yes Advanced Practice Provider:: Eladia Mariano Advanced Practice Provider documentation review:: The Mid-level provider documentation, treatment plan and medical decision making was reviewed by the physician who agrees with all treatment and medical decision making by the MLP. The physician spent face to face time with patient:: Yes (Dr. Mitchell) Advanced Practice Provider documentation review:: Supervising physician onsite and consulted in the evaluation and care of this patient. The physician did have a face to face encounter with the patient.
[2019-07-04] MEDS ORDERED: SODIUM CHLORIDE 0.9% INJ SCH (13:45)
[2019-07-04] MEDS ORDERED: NS 1,000 ML IV SCH (13:45)
[2019-07-04] MEDS ORDERED: PROTONIX IV SCH (14:00)
[2019-07-04] MEDS ORDERED: ZOFRAN IV PRN (14:11)
[2019-07-04] MEDS ORDERED: BENADRYL IV PRN (14:12)
[2019-07-04] MEDS: NS 1,000 ML IV SCH (14:28)
[2019-07-04] MEDS ORDERED: TYLENOL PO PRN (14:40)
[2019-07-04] MEDS ORDERED: ZOSTRIX TOP PRN (14:40)
--- NOTE | 2019-07-04 15:43 | HISTORY AND PHYSICAL ---
CHIEF COMPLAINT: Nausea and vomiting. HISTORY OF PRESENT ILLNESS: This is a 33-year-old female who presents to the emergency room complaining of nausea and vomiting that began last night. She states that this is relieved by getting in a hot shower, although it was not relieved by any of her home medications. She states they are the same symptoms as she had on her June 24 admission where she was diagnosed with cannabinoid hyperemesis syndrome. She was discharged from the hospital June 28. She denies using marijuana since discharge. She states that the last time that she used any cannabinoid products was on June 22 or , although urine drug screen today is presumptive positive for cannabinoids and benzodiazepines. When I did tell her that her drug screen was positive, she stated "you know my body is different, pot stays in me for 3 or 4 months at a time." The patient has asked multiple times for Haldol. She states that she has pulled up Haldol and hyperemesis cannabinoid on her cellphone and when she asked she will show the health care provider the article stating that Haldol helps. She told me "I need Haldol, it made me feel really good last time." I did discuss with the patient that she has stated that she has not used any marijuana since before June 24 and there is no indication to give her Haldol. She then stated "well can you just give me any antipsychotic like that that will make me feel good." I did once again discussed with her that she stated that she did not use any cannabinoid products; therefore, she needs no antipsychotics. PAST MEDICAL HISTORY: 1. Cannabinoid hyperemesis syndrome. 2. Hypothyroid. 3. Pneumomediastinum in 2018. PAST SURGICAL HISTORY: Cholecystectomy and . SOCIAL HISTORY: She lives alone. She smokes cigarettes. She denies alcohol use. She does use marijuana. She states that she has 4 boys at home. ALLERGIES: Skelaxin, Reglan, and prednisone caused nausea and vomiting. REVIEW OF SYSTEMS: Discussed with the patient with pertinent positives stated in the HPI. She denied any syncope or dizziness, any chest pain or palpitations, any black or bloody vomitus or stools, any hematuria, dysuria, frequency, urgency. PHYSICAL EXAMINATION: GENERAL: This is a 33-year-old female who is sitting up in the stretcher in the emergency room in no distress. VITAL SIGNS: Blood pressure is 103/67, with a heart rate of 96, respirations are 18, temperature is 98.8 degrees, with room air saturations of 99%. EYES: Pupils are equal, round, react to light. EOMs are intact. Sclerae anicteric. HENT: Head is normocephalic, atraumatic. Mucous membranes are moist. NECK: Supple with trachea midline. CARDIOVASCULAR: Regular rate and rhythm. S1 and S2 appreciated. No murmur. PULMONARY: Breath sounds are clear. No increased work of breathing noted. Chest rises and falls symmetrically with respiration. GASTROINTESTINAL: Abdomen is soft, nontender, nondistended with bowel sounds in all 4 quadrants. NEUROLOGIC: She is alert and oriented x3. SKIN: Warm and dry. LABS: WBC is 11.5, with hemoglobin 14, hematocrit 41.2, platelets of 514,000. Sodium 135, potassium 3.6, BUN 4, creatinine 0.7, with a glucose of 166. Total bilirubin is 1.34, amylase 39, lipase 16. Urinalysis is essentially negative. Urine drug screen is presumptive positive for benzodiazepine and cannabinoid. ASSESSMENT: 1. Intractable nausea, vomiting, cannabinoid hyperemesis syndrome. 2. Cannabinoid use and abuse with a positive drug screen. 3. Leukocytosis, this is very likely reactive. 4. Hypothyroid. 5. Anxiety. 6. Mild reflux esophagitis and mild gastritis on esophagogastroduodenoscopy 06/29/2019. PLAN: 1. The patient will be admitted. She will be n.p.o. at present. We will continue with IV hydration. Give Benadryl and Zofran for nausea. We will not give Haldol as the patient is adamant that she has not smoked or used any cannabinoid products since her admission June 24. 2. Protonix IV. 3. Check CBC, BMP, and magnesium in the morning. 4. We will continue her levothyroxine. 5. Further treatments pending hospital course. Dictated by JONES Song for Dominguez Dasilva MD cc: JONES Song MD
--- NOTE | 2019-07-04 17:04 | Diag Imaging Result Doc PS360 ---
EXAM: ABDOMEN FLAT/UPRIGHT - 07/04/2019 HISTORY: pain TECHNIQUE: Supine and upright abdomen COMPARISON: 06/25/2019 FINDINGS: The bowel gas pattern appears nonspecific and nonobstructive. There is no free air identified. There are stable small calcifications in the pelvis compatible phleboliths. IMPRESSION: Nonspecific, nonobstructive bowel gas pattern. Electronically signed by Ronald Carreon 07/04/2019 5:02 PM
[2019-07-04] MEDS: COMPAZINE IV PRN (17:07)
[2019-07-04] MEDS: ZOFRAN IV PRN ×2 (17:07→21:03)
[2019-07-04] MEDS: CARAFATE PO SCH (17:26)
[2019-07-04] MEDS ORDERED: XANAX PO PRN (17:51)
--- NOTE | 2019-07-04 18:09 | HISTORY AND PHYSICAL ---
ADDENDUM: I agree with most components of the history, physical, assessment, and plan. In brief, Ms. Garcia is a 33-year-old, lady with a history of cyclical vomiting syndrome, hyperemesis gravidarum, previous history of pneumomediastinum due to esophageal rupture due to vomiting, who was recently admitted and discharged on 06/29/2019 for cyclical vomiting syndrome. Comes back again with chief complaints of recurrence of vomiting. The patient states that after EGD, she was feeling better and was tolerating diet well. She was doing fine drinking liquids and soft foods at home. However, yesterday night, she started throwing up again and had to be back in the hospital. In the emergency room, she was found to have tachycardia with a heart rate 106 per minute. She had mild leukocytosis of 11,000. She also had an elevated anion gap. Considering her intractable nausea and vomiting, hospitalist team was consulted for further management. SUBJECTIVE: At the time of my evaluation, she is retching. She denies any abdominal pain but she he is consistently nauseous and has been spitting up. VITALS: Temperature 98.7 degrees, pulse 115, respiratory rate 20, blood pressure 138/98. She is saturating 100% on room air. PHYSICAL EXAMINATION: GENERAL: Not in acute distress. HEENT: Oral cavity is moist. LUNGS: Air entry bilaterally equal. No wheeze, rhonchi, crackles. CARDIAC: S1, S2 normal. No murmur, rub, or gallop. ABDOMEN: Soft, nontender. EXTREMITIES: No lower extremity edema. NEUROLOGIC: She is alert and oriented x3. VASCULAR: She has intact dorsalis pedis, posterior tibial pulses. Capillary refill time less than 2 seconds. SKIN: Appears pink. LABS: WBC 11.5, hemoglobin 14, platelets 515,000. Sodium 135, chloride 96, BUN 4, creatinine 0.7. She does have epithelial cells in urine. Positive urine toxicology for benzodiazepines and cannabis. She denies using cannabis after discharge though. Abdominal x-ray has nonspecific bowel gas pattern. ASSESSMENT AND PLAN: 1. Recurrent Intractable nausea, vomiting, and cyclical vomiting syndrome. The patient states that her cyclical vomiting has been present even before she started using cannabis. Her last cannabis use, she claims to be about at least 15 days ago and she assures me that she did not use any cannabis products after recent discharge. I will start her on intravenous fluids, intravenous proton pump inhibitors every 12 hours, oral sucralfate, intravenous Compazine as needed for vomiting. I will keep her on a bowel regimen to avoid constipation and would monitor her electrolytes. 2. Elevated anion gap, low bicarbonate. She also had ketones in the urine. This could be related to starvation ketosis related to she has not been able to eat anything. I will continue her with intravenous fluids and follow up with electrolyte panel tomorrow. 3. History of anxiety. I will continue her Xanax as needed; continue levothyroxine for hypothyroidism as needed. 4. Disposition. Monitor patient inside the hospital. I will follow up with EKG tomorrow for QTc interval monitoring. I will keep her nothing per oral except ice chips and sips of water. Plan of care discussed with Ms. Garcia. She was allowed to ask questions. Her questions have been answered. cc: Dominguez Dasilva MD MTDD
[2019-07-04] MEDS: DULCOLAX PR SCH (20:58)
[2019-07-05] MEDS: NS 1,000 ML IV SCH ×2 (00:29→10:11)
[2019-07-05] MEDS: COMPAZINE IV PRN ×2 (00:29→06:49)
[2019-07-05] MEDS: ZOFRAN IV PRN (04:19)
[2019-07-05] MEDS: PROTONIX IV SCH ×2 (06:19→17:11)
[2019-07-05] MEDS ORDERED: SYNTHROID PO SCH (07:00)
[2019-07-05 07:41] LABS: BASO# 0.04 X1000 (0.0-0.2); BASO% 0.5 % (0.0-0.8); EOS# 0.12 X1000 (0.0-0.7); EOS% 1.6 % (0.0-10.0); HEMOGLOBIN 11.5 g/dL (12.0-16.0); LYMPH# 3.19 X1000 (1.2-3.4); LYMPH% 42.8 % (20.5-51.1); MCH 29.3 PG (27-31); MCHC 32.9 g/dL (33-37); MCV 89.3 FL (81-99); MONO# 0.55 X1000 (0.11-0.59); MONO% 7.4 % (1.7-9.3); MPV 9.7 FL (7.4-10.4); NEUT# 3.55 X1000 (1.4-6.5); NEUT% 47.7 % (42.2-75.2); PLT 343 X1000 (130-400); RBC 3.92 XMIL (4.2-5.4); RDW 14.2 % (11.5-14.5); WBC 7.45 X1000 (4.8-10.8)
--- NOTE | 2019-07-05 07:52 | EKG Report ---
Test Performed on : 07/05/2019 07:19:39 AM Test Reason : Follow up QTc interval. Blood Pressure : / mmHG Vent. Rate : 078 BPM Atrial Rate : 078 BPM P-R Int : 130 ms QRS Dur : 088 ms QT Int : 392 ms P-R-T Axes : 042 038 030 degrees QTc Int : 446 ms Normal sinus rhythm. with sinus arrhythmia. Normal ECG When compared with ECG of 28-JUN-2019 08:20, No significant change was found Confirmed by Greg ALEX, Nghia Gonsales ([id number]) on 07/05/2019 9:26:24 AM
[2019-07-05 08:12] LABS: AGAP 11; BUN 4 mg/dL (8-22); CALCIUM 8.7 mg/dL (8.8-10.2); CHLORIDE 103 mmol/L (98-107); COSMO 270; CREATININE 0.7 mg/dL (0.5-0.9); ESTIMATED GFR > 60; GLUCOSE 92 mg/dL (70-104); POTASSIUM 3.1 mmol/L (3.5-5.1); SODIUM 137 mmol/L (136-145); TCO2 23 mmol/L (25-35)
[2019-07-05] MEDS ORDERED: MIRALAX PO SCH (09:00)
[2019-07-05] MEDS: CARAFATE PO SCH ×3 (10:13→17:09)
[2019-07-05] MEDS: DULCOLAX PR SCH (10:17)
[2019-07-05] MEDS ORDERED: KLOR-CON PO ONE (17:23)
[2019-07-05 17:31] VITALS: BP 108/70
--- NOTE | 2019-07-05 20:17 | DISCHARGE SUMMARY ---
ADMISSION DATE: 07/04/2019 DISCHARGE DATE: 07/05/2019 DISCHARGE DIAGNOSES: 1. Intractable nausea and vomiting due to cyclical vomiting syndrome, possibly due to cannabis. 2. Anion gap acidosis, probably due to starvation ketoacidosis. 3. Anxiety disorder. CONSULTATIONS: None. HOSPITAL COURSE: This is a 33-year-old female who had persistent nausea and vomiting. She was told [employer] works for hyperemesis syndrome. She came in for evaluation. She was given Benadryl, Zofran, Protonix. She slowly improved. On the , she was requesting liquids and also requesting to go home, and she tolerated liquid diet x2 without any further nausea or vomiting. She also had some mild hypokalemia. I did report to her that marijuana usage would possibly exacerbate this type of syndrome. She understood that and says she had not used in over a week and a half. She will be discharged in stable condition. DISCHARGE MEDICATIONS: 1. Synthroid 88 mcg daily. 2. Xanax 1 b.i.d. 3. Carafate 1 g t.i.d. 4. Phenergan 25 p.r. q.6 p.r.n. nausea. 5. Protonix 40 b.i.d. DISCHARGE CONDITION: Stable. FOLLOWUP: She will follow up with PCP soon and then likely also follow up with GI when available. cc: Raj Cutler MD
== END 2019-07-05 18:21 | disposition home or self-care (01) | DRG 394 ==
LOC: ED 08:57 → SUATTDRO 14:32 → 4N 14:32
PROVIDERS: ATTEND Internal Medicine